=== PATIENT | female | born 1940 | race Caucasian/White ===

== ENCOUNTER 2019-12-26 15:35 | Outpatient (REF) | payer MEDICARE, SELFPAY ==
--- NOTE | 2019-12-26 15:43 | XR_ITS ---
EXAMINATION: XR KNEE, LEFT CLINICAL INFORMATION: Right knee pain (sic) COMPARISON: 12/25/2014 TECHNIQUE: Four views of the left knee. FINDINGS: No fracture, dislocation, or joint effusion. There are multiple well-corticated ossific structures in the right anterior soft tissues of the level of the proximal tibia. There is medial prepatellar soft tissue swelling. XR/XR knee LT 4V IMPRESSION: No acute osseous abnormality. Soft tissue swelling medially and anteriorly with dystrophic calcifications.
--- NOTE | 2019-12-26 15:43 | XR_ITS ---
EXAMINATION: XR CERVICAL SPINE CLINICAL INFORMATION: Neck pain COMPARISON: Report from CT cervical spine 09/24/2011, images not available for direct comparison at the time of interpretation TECHNIQUE: AP, lateral, odontoid, and bilateral oblique views. FINDINGS: The dens is intact. The lateral masses are normally aligned. There is normal prevertebral soft tissues. Normal sagittal alignment of the cervical spine. Osteopenia. Vertebral body heights are maintained. Mild multilevel degenerative disc disease with endplate sclerosis and osteophytosis. No fracture seen. There is multilevel facet arthropathy but no definite osseous neuroforaminal narrowing on oblique views. XR/XR cervical spine 5V IMPRESSION: No acute osseous abnormality. There is multilevel facet arthropathy but no definite osseous neuroforaminal narrowing on oblique views.
== END 2019-12-26 15:36 | disposition home or self-care (01) ==
LOC: HO.XRAY 15:35
DX: M54.2 Cervicalgia (principal); M25.562 Pain in left knee
CPT/HCPCS: 72050; 73564

== ENCOUNTER 2020-07-13 07:57 | Outpatient (REF) | payer MEDICARE, SELFPAY ==
[2020-07-13 12:23] LABS: Anion Gap 14 (12-20); Blood Urea Nitrogen 43 mg/dL (9-16); Calcium 9.4 mg/dL (8.4-10.2); Carbon Dioxide 26 mmol/L (22-29); Chloride 108 mmol/L (96-108); Estimated Glomerular Filt Rate 37; Glucose Fasting 68 mg/dL (60-99); Potassium 4.6 mmol/L (3.3-5.1); Sodium 143 mmol/L (135-145)
[2020-07-13 13:15] LABS: Erythrocyte Sedimentation Rate 18 MM/HR (0-20)
[2020-07-14 09:01] LABS: Lyme Abs Screen <0.90 index
[2020-07-15 15:27] LABS: Anti Nuclear Antibody Screen NEGATIVE (NEGATIVE)
[2020-07-17 11:56] LABS: IgA 78 mg/dL (70-320); IgG 1218 mg/dL (600-1540); IgM 31 mg/dL (50-300)
== END 2020-07-13 07:58 | disposition home or self-care (01) ==
LOC: HO.HMGCLDS 07:57
PROVIDERS: Visit Provider Psychiatry & Neurology Neurology
DX: G62.9 Polyneuropathy, unspecified (principal)
CPT/HCPCS: 36415; 80048; 82550; 82784; 85652; 86038; 86039; 86334; 86617; 86618

== ENCOUNTER → 2020-08-21 14:18 | Outpatient (BNVA) | payer MEDICARE, SELFPAY | PROVIDERS: PCP Nurse Practitioner Family; Visit Provider Internal Medicine Pulmonary Disease | DX: J44.9 Chronic obstructive pulmonary disease, unspecified (principal); R06.00 Dyspnea, unspecified; R06.09 Other forms of dyspnea; B94.8 Sequelae of other specified infectious and parasitic diseases | CPT/HCPCS: 99212 ==

== ENCOUNTER 2020-10-17 13:07 | Outpatient (REF) | payer MEDICARE, SELFPAY ==
--- NOTE | ~2020-10-17 | CT_ITS ---
EXAMINATION: CT CHEST WITHOUT CONTRAST CLINICAL INFORMATION: Dyspnea. COMPARISON: Previous chest x-rays, most recent April 2018 and abdominal and pelvic CT May 2017. TECHNIQUE: Multidetector volumetric CT imaging of the chest was done. Axial MIP volume rendering provided. Sagittal and coronal reformatted images were obtained. This CT examination was performed using dose optimization techniques as appropriate, variously including the following: *Automated exposure control *Adjustment of mA and/or kV according to patient size (this includes techniques or standardized protocols for targeted exams where dose is matched to indication/reason for exam; i.e. extremities or head) *Use of iterative reconstruction technique DLP: 150 mGy-cm. FINDINGS: MANAGER TRADE: LUNGS: There are increased reticular markings seen in the upper lungs, questionable for mild interstitial disease versus post infectious or inflammatory scarring. There is volume loss to the right lower lobe and thick band-like scarring or atelectasis in the right lower lobe. There is a 3 mm left lower lobe nodule, axial image 312 series 4. This is unchanged from lung windows from abdominal and pelvic CT scan May 2017. No endobronchial or tracheal lesion is seen. MEDIASTINUM: There is a 1.5 x 2.3 cm right thyroid nodule. There is a 1 cm nodule in the isthmus. The heart is slightly enlarged. There is coronary artery calcification. There is no pericardial effusion. There are no enlarged hilar or mediastinal lymph nodes. There may be a small esophageal hernia. PLEURA: There is a trace right pleural effusion or pleural thickening. There is no left pleural effusion. AXILLA: No lymphadenopathy. UPPER ABDOMEN: There is a 1 x 1.6 cm low-attenuation right adrenal lesion probably representing a lipid-rich adenoma. There is a 2 cm low-attenuation lesion high in the dome of the liver. These findings are unchanged from abdominal pelvic CT scan May 2015. OSSEOUS STRUCTURES: There are degenerative changes of the spine. There is a Schmorl's node superior endplate of the T10 vertebral body. CT/CT chest wo con IMPRESSION: Volume loss to the right lower lobe with thick band-like scarring or atelectasis. Increased reticular markings in the upper lungs questionable for mild interstitial disease versus post infectious or inflammatory scarring. Tiny right pleural effusion. Thyroid nodules, largest measuring 1 x 2 cm. Follow-up thyroid ultrasound recommended. Enlarged heart, coronary artery calcification.
== END 2020-10-17 13:08 | disposition home or self-care (01) ==
LOC: HO.CT 13:07
PROVIDERS: PCP Nurse Practitioner Family; Visit Provider Internal Medicine Pulmonary Disease
DX: R06.09 Other forms of dyspnea (principal); B94.8 Sequelae of other specified infectious and parasitic diseases
CPT/HCPCS: 71250

== ENCOUNTER 2020-10-31 13:48 | Outpatient (REF) | payer MEDICARE, SELFPAY ==
--- NOTE | 2020-10-31 15:01 | PFT_ITS ---
FLOWS: FEV1 72% of predicted at 1.11 L. FVC 73% of predicted at 1.54 L. FEV1 to FVC ratio of 0.72. No bronchodilator response except in small to medium airways. LUNG VOLUMES: Total lung capacity 83% of predicted at 3.73 L. Residual volume 101% of predicted at 2.23 L. Slow vital capacity 66% of predicted at 1.19 L. Expiratory reserve volume 20% of predicted at 0.08 L. Diffusion capacity is mildly decreased, diffusion capacity adjust to normal after adjustment for alveolar ventilation. In comparison to pulmonary function test in August 2018, FEV1 and FVC have been without significant changes; total lung capacity has decreased by 0.89 L; residual volume has decreased by 0.69 L; slow vital capacity has decreased by 0.28 L; expiratory reserve volume has decreased by 0.22 L; diffusion capacity has decreased by 5.33 mL/minute per mmHg. IMPRESSION: Moderate obstructive reversible ventilatory defect with no bronchodilator response except in small to medium airways. Decreased expiratory reserve volume suggests extrathoracic restriction likely secondary to abdominal obesity. Los Carnes MD AP/MODL / [phone]
== END 2020-10-31 13:49 | disposition home or self-care (01) ==
LOC: HO.RESP 13:48
PROVIDERS: PCP Nurse Practitioner Family; Visit Provider Internal Medicine Pulmonary Disease
DX: R06.09 Other forms of dyspnea (principal); B94.8 Sequelae of other specified infectious and parasitic diseases; R91.8 Other nonspecific abnormal finding of lung field; E04.2 Nontoxic multinodular goiter; R16.0 Hepatomegaly, not elsewhere classified; E27.8 Other specified disorders of adrenal gland; E55.9 Vitamin D deficiency, unspecified
CPT/HCPCS: 94060; 94727; 94729; 99202

== ENCOUNTER 2020-11-03 07:20 | Outpatient (REF) | payer MEDICARE, SELFPAY ==
[2020-11-03 08:42] LABS: Free T4 (Free Thyroxine) 0.83 ng/dL (0.71-1.85); Thyroid Stimulating Hormone 2.87 uIU/mL (0.32-4.0); Vitamin D 25-OH Total 25.2 ng/mL (>30)
[2020-11-03 10:04] LABS: Anion Gap 12 (12-20); Blood Urea Nitrogen 23 mg/dL (9-16); Calcium 9.2 mg/dL (8.4-10.2); Carbon Dioxide 26 mmol/L (22-29); Chloride 108 mmol/L (96-108); Estimated Glomerular Filt Rate 42; Glucose Random 75 mg/dL (60-115); Potassium 4.3 mmol/L (3.3-5.1); Sodium 142 mmol/L (135-145)
[2020-11-05 18:37] LABS: DHEA Sulfate 59 mcg/dL (7-177)
[2020-11-06 00:11] LABS: Adrenocorticotropic Hormone 11 pg/mL (6-50)
[2020-11-08 06:11] LABS: Metanephrine, Free 40 pg/mL (<=57); Normetanephrines, Free 72 pg/mL (<=148); Total Metanephrine, Free 112 pg/mL (<=205)
[2020-11-09 13:51] LABS: Renin 0.75 ng/mL/h (0.25-5.82)
[2020-11-12 21:38] LABS: Catecholamine Frac, Total 511 pg/mL
== END 2020-11-03 07:21 | disposition home or self-care (01) ==
LOC: HO.LAB 07:20
PROVIDERS: PCP Nurse Practitioner Family; Visit Provider Internal Medicine
DX: E04.2 Nontoxic multinodular goiter (principal); E27.8 Other specified disorders of adrenal gland; E55.9 Vitamin D deficiency, unspecified
CPT/HCPCS: 36415; 80048; 82024; 82088; 82306; 82384; 82533; 82627; 83835; 84244; 84439; 84443

== ENCOUNTER 2020-11-07 11:30 | Outpatient (REF) | payer MEDICARE, SELFPAY ==
[2020-11-07 11:40] LABS: Total Volume 24 Hour Urine 1100 mL
[2020-11-07 12:26] LABS: Creatinine, 24Hr Urine 0.6 G/Day (1.0-2.0); Creatinine, mg/dL 57.72
[2020-11-13 16:27] LABS: Cortisol Free, 24 Hr Urine 6.6 mcg/24 h (4.0-50.0); Creatinine, 24 Hr Urine 0.66 g/24 h (0.50-2.15); Total Volume, 24 Hr Urine 1100 mL
[2020-11-14 06:16] LABS: CATF, 24 Ur Volume 1100 mL; CATF-24Ur Creatinine 0.65 g/24 h (0.50-2.15); Catecholamines,Tot. (E+NE) 24U 18 mcg/24 h (26-121); Dopamine, 24 Ur 97 mcg/24 h (52-480); Norepinephrine, 24 Ur 18 mcg/24 h (15-100)
[2020-11-21 11:53] LABS: Metanephrine, Free 24U 31 mcg/24 h (90-315); Normetanephrine, Free 24U 160 mcg/24 h (122-676); Total Metanephrine, Free 24U 191 mcg/24 h (224-832); Total Volume 24U 1100 mL
== END 2020-11-07 11:31 | disposition home or self-care (01) ==
LOC: HO.LNP 11:30
PROVIDERS: Visit Provider Internal Medicine
DX: E27.8 Other specified disorders of adrenal gland (principal)
CPT/HCPCS: 82384; 82530; 82570; 83835

== ENCOUNTER 2020-11-21 10:11 | Outpatient (REF) | payer MEDICARE, SELFPAY ==
--- NOTE | ~2020-11-21 | US_ITS ---
EXAMINATION: US THYROID CLINICAL INFORMATION: Nontoxic multinodular goiter. COMPARISON: None TECHNIQUE: Linear transducer grayscale and color Doppler examination with attention to the region of the thyroid. FINDINGS: SIZE: Measurements of the thyroid lobes and nodules are given in sagittal, anteroposterior and transverse dimensions respectively. Right Thyroid Lobe: 4.4 x 1.7 x 2.4 cm, volume 9.4 mL. Parenchyma: The gland echotexture is heterogeneous. Thyroid vascularity is increased. Left Thyroid Lobe: 3.7 x 1.3 x 1.1 cm, volume 2.8 mL. Parenchyma: The gland echotexture is heterogeneous. Thyroid vascularity is increased. Isthmus: 0.9 cm in maximum AP dimension. Estimated total number of nodules greater than or equal to 1 cm: 6 to 10. Estimate Clerk nodules are described as follows: 1. Location: Isthmus. Size: 1.0 x 0.8 x 1.0 cm, volume 0.41 mL. Nodule characteristics: Composition: Solid (2). Echogenicity: Isoechoic (1). Shape: Not taller than wide (0). Margins: Echogenic Foci: None (0). ACR TI-RADS total points: 3 ACR TI-RADS category: 3 2. Location: Inferior isthmus. Size: 1.1 x 1.0 x 1.2 cm, volume 0.69 mL. Nodule characteristics: Composition: Solid (2). Echogenicity: Hypoechoic (2). Shape: Not taller than wide (0). Margins: Ill-defined (0). Echogenic Foci: None (0). ACR TI-RADS total points: 4 ACR TI-RADS category: 4 3. Location: Right superior. Size: 1.0 x 0.7 x 1.1 cm, volume 0.41 mL. Nodule characteristics: Composition: Solid (2). Echogenicity: Cannot be determined (1). Shape: Not taller than wide (0). Margins: Ill-defined (0). Echogenic Foci: Macrocalcifications (1). ACR TI-RADS total points: 4 ACR TI-RADS category: 4 4. Location: Right mid. Size: 2.3 x 1.7 x 2.2 cm, volume 4.46 mL. Nodule characteristics: Composition: Solid/almost completely solid (2). Echogenicity: Hypoechoic (2). Shape: Not taller than wide (0). Margins: Lobulated (2). Echogenic Foci: None (0). ACR TI-RADS total points: 6 ACR TI-RADS category: 4 5. Location: Left inferior. Size: 1.0 x 0.8 x 1.2 cm, volume 1.18 mL. Nodule characteristics: Composition: Solid (2). Echogenicity: Hypoechoic (2). Shape: Not taller than wide (0). Margins: Ill-defined (0). Echogenic Foci: None (0). ACR TI-RADS total points: 4 ACR TI-RADS category: 4 NODES: No lymphadenopathy is seen in the tissue surrounding the thyroid gland. US/US thyroid IMPRESSION: 1. Multiple thyroid nodules are seen, as above. The 2.3 cm in maximal diameter mid right thyroid lobe nodule meets ACR biopsy criteria and is amenable to ultrasound-guided biopsy, if clinically indicated and not already performed. 2. There is heterogeneous thyroid echotexture and increased vascularity, which can be associated with thyroiditis. ACR TI-RADS RECOMMENDATION REFERENCE: Ultrasound-guided fine-needle aspiration, followup ultrasound, no further follow up. * TR1 (0 point) and TR 2 (2 points): No FNA or follow up * TR3 (3 points): FNA if more than or equal to 2.5 cm in maximum dimension, followup ultrasound in 1, 3 and 5 years if 1.5 to 2.4 cm in maximum dimension. * TR4 (4-6 points): FNA if more than or equal to 1.5 cm in maximum dimension, followup ultrasound in 1, 2, 3 and 5 years if 1 to 1.4 cm in maximum dimension. * TR5 (more than or equal to 7 points): FNA if more than or equal to 1 cm in maximum dimension, followup ultrasound every year for 5 years if 0.5 to 0.9 cm in maximum dimension. * TR3, TR4 or TR5 nodules that are below the size threshold for follow up receive no follow up.
== END 2020-11-21 10:12 | disposition home or self-care (01) ==
LOC: HO.HMGCX 10:11
PROVIDERS: PCP Nurse Practitioner Family; Visit Provider Internal Medicine
DX: J44.9 Chronic obstructive pulmonary disease, unspecified (principal); R91.1 Solitary pulmonary nodule; E04.2 Nontoxic multinodular goiter
CPT/HCPCS: 76536; 99212

== ENCOUNTER 2020-12-03 08:38 | Outpatient (REF) | payer MEDICARE, SELFPAY ==
--- NOTE | ~2020-12-03 | CT_ITS ---
EXAMINATION: CT ABDOMEN WITHOUT AND WITH CONTRAST CLINICAL INFORMATION: 80-year-old female with adrenal abnormality. COMPARISON: Abdomen CT from 05/29/2017. Chest CT from 10/17/2020. TECHNIQUE: Multidetector CT imaging examination of the abdomen was performed focused on the adrenal glands. Initially, noncontrast images were acquired. Then, postcontrast imaging was performed in 2 phases according to adrenal protocol after intravenous administration of 85 mL Omnipaque 350. This CT examination was performed using dose optimization techniques as appropriate, variously including the following: *Automated exposure control *Adjustment of mA and/or kV according to patient size (this includes techniques or standardized protocols for targeted exams where dose is matched to indication/reason for exam; i.e. extremities or head) *Use of iterative reconstruction technique DLP: 944 mGy-cm FINDINGS: LUNG BASES: Subsegmental atelectasis in the right lower lobe. No basilar consolidation. A trace right pleural effusion is present. LIVER: Liver has normal size and contour. A 2 x 2.4 cm hypodense subcapsular focus of hepatic segment 8 is stable compared to 05/29/2017. It has a density of approximately 30 HU on noncontrast images. It does not significantly change in its attenuation on postcontrast images. This likely represents a hypoenhancing hemangioma rather than a slightly hyperdense liver cyst. No suspicious liver lesions. GALLBLADDER AND BILIARY TREE: Gallbladder is without radiopaque stones, wall thickening or pericholecystic fluid. No bile duct dilatation. PANCREAS: Mild atrophy and partial fatty replacement of the pancreas. No pancreatic mass or ductal dilatation. SPLEEN: Normal. ADRENAL GLANDS: 1.2 x 1.7 cm smoothly marginated, noncalcified nodule of the right adrenal gland has attenuation of approximately 6 HU on the noncontrast images. The nodule is unchanged in size compared to 05/29/2017, and the low-attenuation is consistent with lipid rich adenoma. The lesion measures 65 HU on the 1 minute postcontrast images and 19 HU on the delayed postcontrast images. The absolute percentage washout of the adrenal lesion is 78%. The left adrenal gland is normal. KIDNEYS: No acute abnormalities in either kidney. No nephrolithiasis or hydronephrosis. No solid renal mass. There is mild atrophy of the left kidney. There are a few small simple cysts of the left kidney. Renal imaging follow-up is not recommended for simple cysts. The visualized proximal ureters are normal. BOWEL AND PERITONEUM: No dilated loops of bowel. No evidence of inflammatory change or obstruction along the visualized gastrointestinal tract. There are diverticula of the colon without diverticulitis. There appears to be a very small sliding-type hiatal hernia of the stomach. ABDOMINAL WALL: Unremarkable. VASCULATURE: Atherosclerotic calcification of the abdominal aorta without aneurysm. The calcified atherosclerotic plaque appears to cause severe stenosis at the origin of the left renal artery. Inferior vena cava and renal veins are normal. LYMPH NODES: No pathologic sized lymph nodes. SKELETAL: Multilevel discovertebral degenerative change and chondrocalcinosis of the visualized spine. Schmorl's node of superior endplate of the T10 vertebral body. 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 * The stable hypodense subcapsular focus of hepatic segment 8 is likely a hemangioma. No new liver lesion. * Colonic diverticulosis without diverticulitis.
[2020-12-03] MEDS: iohexoL 350 MG/ML 100 ML INFUS..BTL 85 ML IV (10:32)
== END 2020-12-03 08:39 | disposition home or self-care (01) ==
LOC: HO.CT 08:38
PROVIDERS: PCP Nurse Practitioner Family; Visit Provider Internal Medicine
DX: E27.8 Other specified disorders of adrenal gland (principal)
CPT/HCPCS: 74170; Q9967

== ENCOUNTER → 2021-02-18 12:56 | Outpatient (BNVA) | payer MEDICARE, SELFPAY | PROVIDERS: PCP Nurse Practitioner Family; Visit Provider Internal Medicine Gastroenterology | DX: R16.0 Hepatomegaly, not elsewhere classified (principal) | CPT/HCPCS: Q3014 ==

== ENCOUNTER 2021-03-29 10:39 | Outpatient (REF) | payer MEDICARE, SELFPAY ==
[2021-03-29 14:32] LABS: Alanine Aminotransferase 16 U/L (0-31); Alkaline Phosphatase 92 U/L (39-117); Anion Gap 12 (12-20); Aspartate Amino Transferase 17 U/L (5-31); Bilirubin Total 0.5 mg/dL (0.0-1.0); Blood Urea Nitrogen 25 mg/dL (9-16); Calcium 10.1 mg/dL (8.4-10.2); Carbon Dioxide 31 mmol/L (22-29); Chloride 103 mmol/L (96-108); Estimated Glomerular Filt Rate 36; Glucose Random 84 mg/dL (60-115); Potassium 4.4 mmol/L (3.3-5.1); Sodium 142 mmol/L (135-145); Total Protein 6.5 g/dL (6.5-8.0)
== END 2021-03-29 10:40 | disposition home or self-care (01) ==
LOC: HO.HMGCLDS 10:39
PROVIDERS: Visit Provider Internal Medicine Gastroenterology
DX: K75.81 Nonalcoholic steatohepatitis (NASH) (principal)
CPT/HCPCS: 36415; 80053

== ENCOUNTER 2021-04-03 09:37 | Outpatient (REF) | payer MEDICARE, SELFPAY ==
--- NOTE | ~2021-04-03 | CT_ITS ---
EXAMINATION: CT ABDOMEN WITHOUT AND WITH CONTRAST CLINICAL INFORMATION: Hepatomegaly. COMPARISON: None TECHNIQUE: Contiguous axial thin section helical images of the abdomen were performed before and after the administration of oral contrast and 85 mL of Omnipaque 350 intravenous contrast. The data set was reformatted in the coronal and sagittal planes and reviewed on an independent workstation. This CT examination was performed using dose optimization techniques as appropriate, variously including the following: *Automated exposure control *Adjustment of mA and/or kV according to patient size (this includes techniques or standardized protocols for targeted exams where dose is matched to indication/reason for exam; i.e. extremities or head) *Use of iterative reconstruction technique DLP: 965 mGy-cm FINDINGS: LUNG BASES: Mild atelectatic changes seen right lung base. Heart size is normal. LIVER, GALLBLADDER, AND BILIARY TREE: There is a 1.1 x 2.3 cm triangular hypodensity right hepatic lobe segment 6 adjacent to the right hemidiaphragm on axial image 9/3. No additional lesions seen. The rest of the liver is homogeneous in density, normal size and contour. No intrahepatic ductal dilatation seen. The gallbladder is unremarkable. PANCREAS: The pancreas is homogeneous in density and appears unremarkable. SPLEEN: The spleen is homogeneous in density and appears unremarkable. ADRENAL GLANDS AND KIDNEYS: There is a right adrenal nodule with heterogeneous attenuation measuring 1.2 x 1.6 cm and 44 Hounsfield units. The left adrenal gland is unremarkable. BOWEL LOOPS: There is scattered stool, diverticula and gas in colon without distention. The small bowel loops are normal caliber. Appendix is not visualized. The stomach is nondistended. LYMPH NODES: Normal. VASCULAR: Unremarkable. BONES: There is vacuum disc phenomena and disc degeneration at L3-L4 and L4-L5 disc level. No aggressive lytic or sclerotic process seen. CT/CT abdomen wo/w con IMPRESSION: 1. Hypodense triangular-shaped lesion right hepatic lobe lesion adjacent to the diaphragm. The differential diagnosis to consider focal fatty infiltration, hemangioma or adenoma. 2. Heterogeneous enhancing lesion right adrenal gland. Recommend adrenal protocol for further evaluation. 3. Scattered colonic diverticulosis without diverticulitis. Fleischner guidelines were followed.
[2021-04-03] MEDS: iohexoL 350 MG/ML 100 ML INFUS..BTL IV (11:05)
== END 2021-04-03 09:38 | disposition home or self-care (01) ==
LOC: HO.CT 09:37
PROVIDERS: PCP Nurse Practitioner Family; Visit Provider Internal Medicine Gastroenterology
DX: R16.0 Hepatomegaly, not elsewhere classified (principal)
CPT/HCPCS: 74170; Q9967

== ENCOUNTER 2021-04-18 08:42 | Outpatient (REF) | payer MEDICARE, SELFPAY ==
--- NOTE | 2021-04-18 09:57 | PM.OP ---
Brief Operative Note Date of Service: 04/18/21 Pre-op diagnosis: Multinodular Thyroid Procedure: This is doctor Harper Saul. This is an ultrasound-guided fine-needle aspiration report. Date of Examination: 04/18/2021 Indication: Multinodular Thyroid Porcedure: Procedure was explained to the patient. Alternatives, the risk and benefits were discussed. Written consent was obtained. A time-out was also obtained. After sterile preparation, fine-needle aspiration of a left lower pole 1.3 cm thyroid nodule was performed using direct ultrasound guidance to confirm accurate needle placement. Two aspirations were made using 27 gauge needles. Samples were submitted for cytology. 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 Our attention was then turned to the isthmus. Fine-needle aspiration of an isthmus 1.1 cm thyroid nodule was performed using direct ultrasound guidance to confirm accurate needle placement. Three aspirations were made using 27 gauge needles. Samples were submitted for cytology. 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 Our attention was then turned to the left right lobe. Fine-needle aspiration of a right mid pole 1.9 cm thyroid nodule was performed using direct ultrasound guidance to confirm accurate needle placement. Four aspirations were made using 27 gauge needles. Samples were submitted for cytology. 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 The patient tolerated the procedure well. Aftercare instructions were provided. Of note, the measured nodules during today's exam did not completely correlate with what was measured on her official radiology read US. During today's exam she was noted to only have 1 nodule within the isthmus, 1 nodule within the R lobe, and 1 nodule within the left lobe. All 3 of these nodules were biopsied today. Impression: Uncomplicated fine needle aspiration biopsy of a left lower pole 1.3 cm thyroid nodule, an isthmus 1.1 cm thyroid nodule and a right mid pole 1.9 cm thyroid nodule under ultrasound guidance. Surgeon: Harper Saul, DO Was an Catechist used for this Procedure?: No Estimated blood loss (mL): 0
[2021-04-18] MEDS: Lidocaine HCl 1 % MPF 5 ML VIAL SUBCUT (10:35)
== END 2021-04-18 08:43 | disposition home or self-care (01) ==
LOC: HO.US 08:42
PROVIDERS: PCP Nurse Practitioner Family; Visit Provider Internal Medicine
DX: E04.2 Nontoxic multinodular goiter (principal)
CPT/HCPCS: 10005; 10006; 88172; 88173

== ENCOUNTER → 2021-04-29 08:18 | Outpatient (BNVA) | payer MEDICARE, SELFPAY | PROVIDERS: PCP Nurse Practitioner Family; Visit Provider Internal Medicine Gastroenterology | DX: Z13.89 Encounter for screening for other disorder (principal) | CPT/HCPCS: Q3014 ==

== ENCOUNTER → 2021-05-02 10:32 | Outpatient (BNVA) | payer MEDICARE, SELFPAY | PROVIDERS: PCP Nurse Practitioner Family; Visit Provider Internal Medicine | DX: E04.2 Nontoxic multinodular goiter (principal); E27.8 Other specified disorders of adrenal gland; E55.9 Vitamin D deficiency, unspecified; R16.0 Hepatomegaly, not elsewhere classified | CPT/HCPCS: Q3014 ==

== ENCOUNTER → 2021-06-12 09:46 | Outpatient (BNVA) | payer MEDICARE, SELFPAY | PROVIDERS: PCP Nurse Practitioner Family; Visit Provider Internal Medicine Pulmonary Disease | DX: Z13.89 Encounter for screening for other disorder (principal) | CPT/HCPCS: 99212 ==

== ENCOUNTER 2021-10-30 12:37 | Outpatient (REF) | payer MEDICARE, SELFPAY ==
--- NOTE | ~2021-10-30 | CT_ITS ---
EXAMINATION: CT CHEST WITHOUT CONTRAST CLINICAL INFORMATION: Solitary pulmonary nodule. COMPARISON: CT chest 10/17/2020. TECHNIQUE: Multidetector volumetric CT imaging of the chest was done. Axial MIP volume rendering provided. Sagittal and coronal reformatted images were obtained. This CT examination was performed using dose optimization techniques as appropriate, variously including the following: *Automated exposure control *Adjustment of mA and/or kV according to patient size (this includes techniques or standardized protocols for targeted exams where dose is matched to indication/reason for exam; i.e. extremities or head) *Use of iterative reconstruction technique DLP: 151 mGy-cm FINDINGS: CLOCK AND WATCH HANDS DIPPER: Unremarkable plug sorter exam. LUNGS: There are subpleural prominent reticular markings in both upper lobes slightly greater than the right than left similar to previous study. Minimal ground-glass attenuation is seen in both upper lobes all suggestive of low-grade inflammatory process. The lungs are hyperinflated. Patchy opacity seen in right lower lobe with loss of right lung volume likely chronic atelectasis or scarring. There is a 2 mm nodule left lower lobe axial image 250/5, stable. There are sub-millimeter small nodules seen as well in the left lower lobe which are also stable. No new nodules or mass seen. MEDIASTINUM: The right thyroid lobe is enlarged compared to left side with probable small nodule not clearly visualized at this time.. The central trachea and the bronchi are widely patent. Heart size and the great vessels are normal caliber. Mild coronary artery calcifications are present. There is no pericardial effusion. There is probable small hiatal hernia. CORONARY ARTERY CALCIFICATION: Moderate coronary artery calcification is present. PLEURA: There is no pleural effusion. No pleural mass or thickening. AXILLA: No lymphadenopathy. UPPER ABDOMEN: Visualized liver, spleen and pancreas unremarkable. There is right adrenal 1.5 cm hypodense nodule measuring 4 Hounsfield units likely adenoma. OSSEOUS STRUCTURES: There is exaggerated thoracic kyphosis with mild ventral spondylosis mid dorsal spine. No lytic or sclerotic process seen. CT/CT chest wo IV con IMPRESSION: Hyperinflated lungs with mild volume loss right lung from chronic atelectasis or scarring in the right lower lobe. Small pulmonary nodules are stable. No change in coronary and mitral valve calcifications. Probable small hiatal hernia. Fleischner guidelines were followed.
== END 2021-10-30 12:38 | disposition home or self-care (01) ==
LOC: HO.CT 12:37
PROVIDERS: PCP Nurse Practitioner Family; Visit Provider Internal Medicine Pulmonary Disease
DX: R91.1 Solitary pulmonary nodule (principal)
CPT/HCPCS: 71250

== ENCOUNTER 2021-11-01 07:16 | Outpatient (REF) | payer MEDICARE, SELFPAY ==
[2021-11-01 08:44] LABS: Cortisol Random 1.5 ug/dL
[2021-11-01 08:46] LABS: Vitamin D 25-OH Total 34.9 ng/mL (>30)
[2021-11-04 21:57] LABS: Adrenocorticotropic Hormone <5 pg/mL (6-50)
[2021-11-06 15:10] LABS: Dexamethasone 184 ng/dL
== END 2021-11-01 07:17 | disposition home or self-care (01) ==
LOC: HO.LAB 07:16
PROVIDERS: PCP Nurse Practitioner Family; Visit Provider Internal Medicine
DX: J44.9 Chronic obstructive pulmonary disease, unspecified (principal); R06.00 Dyspnea, unspecified; R91.1 Solitary pulmonary nodule; E55.9 Vitamin D deficiency, unspecified; E27.8 Other specified disorders of adrenal gland
CPT/HCPCS: 36415; 80299; 82024; 82306; 82533; 99212

== ENCOUNTER → 2021-11-04 10:49 | Outpatient (BNVA) | payer MEDICARE, SELFPAY | PROVIDERS: PCP Nurse Practitioner Family; Visit Provider Internal Medicine | DX: E04.2 Nontoxic multinodular goiter (principal); R16.0 Hepatomegaly, not elsewhere classified; E27.8 Other specified disorders of adrenal gland | CPT/HCPCS: Q3014 ==

== ENCOUNTER 2021-11-05 07:15 | Outpatient (REF) | payer MEDICARE, SELFPAY ==
[2021-11-05 08:05] LABS: Anion Gap 15 (12-20); Blood Urea Nitrogen 32 mg/dL (9-16); Calcium 9.5 mg/dL (8.4-10.2); Carbon Dioxide 28 mmol/L (22-29); Chloride 103 mmol/L (96-108); Estimated Glomerular Filt Rate 38; Glucose Random 78 mg/dL (60-115); Sodium 142 mmol/L (135-145)
[2021-11-05 08:27] LABS: Free T4 (Free Thyroxine) 0.88 ng/dL (0.71-1.85); Thyroid Stimulating Hormone 1.58 uIU/mL (0.32-4.0)
[2021-11-05 09:24] LABS: Cortisol Random 10.6 ug/dL
[2021-11-06 13:56] LABS: Adrenocorticotropic Hormone 17 pg/mL (6-50)
[2021-11-06 22:57] LABS: DHEA Sulfate 62 mcg/dL (4-157)
[2021-11-09 11:36] LABS: Renin 2.55 ng/mL/h (0.25-5.82)
[2021-11-09 12:06] LABS: Metanephrine, Free <25 pg/mL (<=57); Normetanephrines, Free 81 pg/mL (<=148); Total Metanephrine, Free 81 pg/mL (<=205)
[2021-11-10 21:31] LABS: Catecholamine Frac, Total 409 pg/mL
== END 2021-11-05 07:16 | disposition home or self-care (01) ==
LOC: HO.LAB 07:15
PROVIDERS: PCP Nurse Practitioner Family; Visit Provider Internal Medicine
DX: E27.8 Other specified disorders of adrenal gland (principal); E04.1 Nontoxic single thyroid nodule; E04.2 Nontoxic multinodular goiter
CPT/HCPCS: 36415; 80048; 82024; 82088; 82384; 82533; 82627; 83835; 84244; 84439; 84443

== ENCOUNTER 2021-11-07 08:42 | Outpatient (REF) | payer MEDICARE, SELFPAY ==
[2021-11-07 15:30] LABS: Creatinine, 24Hr Urine 0.8 G/Day (1.0-2.0); Total Volume 24 Hour Urine 700 mL
[2021-11-13 09:07] LABS: CATF, 24 Ur Volume 700 mL; Catecholamines,Tot. (E+NE) 24U 14 mcg/24 h (26-121); Dopamine, 24 Ur 84 mcg/24 h (52-480); Norepinephrine, 24 Ur 14 mcg/24 h (15-100)
[2021-11-13 21:27] LABS: Metanephrine, Free 24U 37 mcg/24 h (90-315); Normetanephrine, Free 24U 232 mcg/24 h (122-676); Total Metanephrine, Free 24U 269 mcg/24 h (224-832); Total Volume 24U 700 mL
[2021-11-14 09:16] LABS: Cortisol Free, 24 Hr Urine 9.1 mcg/24 h (4.0-50.0); Creatinine, 24 Hr Urine 0.78 g/24 h (0.50-2.15); Total Volume, 24 Hr Urine 700 mL
== END 2021-11-07 08:43 | disposition home or self-care (01) ==
LOC: HO.HMGCLDS 08:42
PROVIDERS: PCP Nurse Practitioner Family; Visit Provider Internal Medicine
DX: E27.8 Other specified disorders of adrenal gland (principal)
CPT/HCPCS: 36415; 82384; 82530; 82570; 83835

== ENCOUNTER 2022-02-25 09:12 | Outpatient (REF) | payer MEDICARE, SELFPAY ==
--- NOTE | ~2022-02-25 | CT_ITS ---
EXAMINATION: CT ABDOMEN WITHOUT CONTRAST CLINICAL INFORMATION: Adrenal gland disorder. COMPARISON: CT chest 10/30/2021. CT abdomen 04/03/2021. TECHNIQUE: Contiguous axial thin section helical images of the abdomen were performed without contrast. The data set was reformatted in the coronal and sagittal planes and reviewed on an independent workstation. This CT examination was performed using dose optimization techniques as appropriate, variously including the following: *Automated exposure control *Adjustment of mA and/or kV according to patient size (this includes techniques or standardized protocols for targeted exams where dose is matched to indication/reason for exam; i.e. extremities or head) *Use of iterative reconstruction technique DLP: 117 mGy-cm. FINDINGS: LUNG BASES: Plate-like atelectatic changes are seen in the right lung base. There is a small hiatal hernia. LIVER, GALLBLADDER, BILIARY TREE: The liver is normal size, contour and density. PANCREAS: The pancreas is normal size and homogeneous in density without enlargement or lesion. SPLEEN: The spleen is unremarkable. ADRENAL GLANDS AND KIDNEYS: There is a 1.5 cm hypodense right adrenal lesion measuring -6 Hounsfield units suggestive of benign adenoma. No workup needed left adrenal gland is unremarkable. BOWEL LOOPS: Scattered stool and gas is seen throughout the colon without any significant distention. The small bowel loops are normal caliber. LYMPH NODES: No lymph nodes visualized on this limited CT. VASCULAR: Proximal abdominal aorta is normal caliber except for mild atherosclerosis. BONES: Unremarkable. CT/CT abdomen wo IV con IMPRESSION: 1. 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 No further workup needed. 2. Mild constipation. 3. Small hiatal hernia. Fleischner guidelines were followed.
[2022-02-25 11:40] LABS: Creatinine POC 0.8 mg/dL (0.5-1.4); GFR POC > 60
== END 2022-02-25 09:13 | disposition home or self-care (01) ==
LOC: HO.CT 09:12
PROVIDERS: PCP Nurse Practitioner Family; Visit Provider Internal Medicine
DX: E27.8 Other specified disorders of adrenal gland (principal)
CPT/HCPCS: 74150; 82565

== ENCOUNTER 2022-03-13 10:35 | Outpatient (REF) | payer MEDICARE, SELFPAY ==
--- NOTE | ~2022-03-13 | US_ITS ---
EXAMINATION: US THYROID CLINICAL INFORMATION: Nontoxic multinodular goiter. Granddaughter had thyroid cancer. COMPARISON: Ultrasound thyroid 11/21/2020. TECHNIQUE: Linear transducer grayscale and color Doppler examination with attention to the region of the thyroid. FINDINGS: SIZE: Measurements of the thyroid lobes and nodules are given in sagittal, anteroposterior and transverse dimensions respectively. Right Thyroid Lobe: 3.7 x 1.8 x 2.2 cm, volume 7.7 mL. Previously 4.4 x 1.7 x 2.4 cm, volume 9.4 mL. Parenchyma: The gland echotexture is heterogeneous. Thyroid vascularity is increased. Left Thyroid Lobe: 3.6 x 1.1 x 1.4 cm, volume 2.9 mL. Previously 3.7 x 1.3 x 1.1 cm, volume 2.8 mL. Parenchyma: The gland echotexture is heterogeneous. Thyroid vascularity is normal. Isthmus: 1.0 cm in maximum AP dimension. Previously 0.9 cm. Estimated total number of nodules greater than or equal to 1 cm: 3. [facility] nodules are described as follows: 1. Location: Isthmus. Size: 0.8 x 0.7 x 1.0 cm, volume 0.3 mL. Previously: 1.0 x 0.8 x 1.0 cm, volume 0.4 mL. Nodule characteristics: Composition: Solid (2). Echogenicity: Hyperechoic (1). Shape: Not taller than wide (0). Margins: Smooth (0). Echogenic Foci: None (0). ACR TI-RADS total points: 3 Previous: 3 ACR TI-RADS category: 3 Previous: 3 Significant change in size (>/= 20% in 2 dimensions and minimal increase of 2 mm or 50% or greater increase in volume): None Change in features: None Change in ACR TI-RADS risk category: No change 2. Location: Isthmus inferior. Size: 0.8 x 0.7 x 0.6 cm, volume 0.2 mL. Previously: 1.1 x 1.0 x 1.2 cm, volume 0.7 mL. Nodule characteristics: Composition: Solid (2). Echogenicity: Hypoechoic (2). Shape: Not taller than wide (0). Margins: Smooth (0). Echogenic Foci: None (0). ACR TI-RADS total points: 4 Previous: 4 ACR TI-RADS category: 4 Previous: 4 Significant change in size (>/= 20% in 2 dimensions and minimal increase of 2 mm or 50% or greater increase in volume): None Change in features: None Change in ACR TI-RADS risk category: No change 3. Location: Right superior. Size: 1.1 x 0.9 x 0.9 cm, volume 0.5 mL. Previously: 1.0 x 0.7 x 1.1 cm, volume 0.4 mL. Nodule characteristics: Composition: Solid (2). Echogenicity: Isoechoic (1). Shape: Not taller than wide (0). Margins: Smooth (0). Echogenic Foci: None (0). ACR TI-RADS total points: 3 Previous: 4 ACR TI-RADS category: 3 Previous: 4 Significant change in size (>/= 20% in 2 dimensions and minimal increase of 2 mm or 50% or greater increase in volume): None Change in features: None Change in ACR TI-RADS risk category: No change 4. Location: Right mid. Size: 2.0 x 2.0 x 1.6 cm, volume 3.4 mL. Previously: 2.3 x 1.7 x 2.2 cm, volume 4.5 mL. Nodule characteristics: Composition: Solid (2). Echogenicity: Cannot be determined (1). Shape: Taller than wide (3). Margins: Smooth (0). Echogenic Foci: None (0). ACR TI-RADS total points: 6 Previous: 6 ACR TI-RADS category: 4 Previous: 4 Significant change in size (>/= 20% in 2 dimensions and minimal increase of 2 mm or 50% or greater increase in volume): None Change in features: None Change in ACR TI-RADS risk category: No change 5. Location: Left inferior. Size: 0.6 x 0.6 x 0.6 cm, volume 0.1 mL. Previously: 1.0 x 0.8 x 1.2 cm, volume 0.5 mL. Nodule characteristics: Composition: Solid (2). Echogenicity: Isoechoic (1). Shape: Not taller than wide (0). Margins: Smooth (0). Echogenic Foci: None (0). ACR TI-RADS total points: 3 Previous: 4 ACR TI-RADS category: 3 Previous: 4 Significant change in size (>/= 20% in 2 dimensions and minimal increase of 2 mm or 50% or greater increase in volume): None Change in features: None Change in ACR TI-RADS risk category: No change NODES: No lymphadenopathy is seen in the tissue surrounding the thyroid gland. US/US thyroid IMPRESSION: 1. Heterogeneous thyroid gland with multiple thyroid nodules. There is increased vascularity in right lobe. 2. The largest nodule in the mid right lobe measures 2.0 cm. Minimal change in the size from the last exam 11/21/2020. It meets TI-RADS criteria for ultrasound-guided biopsy. 3. TR1 (0 point) and TR 2 (2 points): 4. TR4 (4-6 points): FNA if more than or equal to 1.5 cm in maximum dimension, followup ultrasound in 1, 2, 3 and 5 years if 1 to 1.4 cm in maximum dimension. 5. TR5 (more than or equal to 7 points): FNA if more than or equal to 1 cm in maximum dimension, followup ultrasound every year for 5 years if 0.5 to 0.9 cm in maximum dimension.
== END 2022-03-13 10:36 | disposition home or self-care (01) ==
LOC: HO.US 10:35
PROVIDERS: PCP Nurse Practitioner Family; Visit Provider Internal Medicine
DX: E04.2 Nontoxic multinodular goiter (principal)
CPT/HCPCS: 76536

== ENCOUNTER 2022-04-04 14:30 | Outpatient (REF) | payer MEDICARE, SELFPAY ==
[2022-04-04 15:59] LABS: Influenza A PCR NEGATIVE (Negative); Influenza B PCR NEGATIVE (Negative); Resp Syncy Virus RNA Qual PCR NEGATIVE (Negative); SARS COV2 PCR INHOUSE NEGATIVE (Negative)
== END 2022-04-04 14:31 | disposition home or self-care (01) ==
LOC: HO.LNP 14:30
PROVIDERS: Visit Provider Physician Assistant
DX: Z20.822 Contact with and (suspected) exposure to COVID-19 (principal); B34.9 Viral infection, unspecified
CPT/HCPCS: 0241U

== ENCOUNTER → 2022-05-12 13:10 | Outpatient (BNVA) | payer MEDICARE, SELFPAY | PROVIDERS: PCP Nurse Practitioner Family; Visit Provider Internal Medicine | DX: E04.2 Nontoxic multinodular goiter (principal); E27.8 Other specified disorders of adrenal gland | CPT/HCPCS: 99212 ==

== ENCOUNTER → 2022-05-16 09:12 | Outpatient (BNVA) | payer MEDICARE, SELFPAY | PROVIDERS: PCP Nurse Practitioner Family; Visit Provider Internal Medicine Pulmonary Disease | DX: J44.9 Chronic obstructive pulmonary disease, unspecified (principal); R06.00 Dyspnea, unspecified | CPT/HCPCS: 99212 ==

== ENCOUNTER 2022-11-20 09:18 | Outpatient (AMB) | payer MEDICARE, SELFPAY ==
[2022-11-20 09:19] VITALS: BP 138/77; PULSE 70; O2SAT 98; BMI 39.0
--- NOTE | 2022-11-20 09:19 | MHC.OFFVIS ---
Intake Vital Signs 11/20/22 09:19 Height 5 ft Weight 199 lb 8.293 oz BMI 39.0 BP 138/77 Blood Pressure Location Rt brachial Position Sitting Pulse 70 Pulse Source Doppler Pulse Oximetry (%) 98 Oxygen Delivery Method Room Air Intake Visit Reasons: copd Allergies baclofen Allergy (Severe, Verified 11/20/22 09:24) Vomiting azithromycin Adverse Reaction (Unknown, Verified 11/20/22 09:24) IRREGULAR HEART BEAT zpak Allergy (Unknown, Uncoded 05/12/22 13:20) Unknown HPI copd HPI Details 82-year-old lady, former 30 pack-year smoker, quit 1993 , followed for moderate COPD and dyspnea on exertion. ? She has been using Stiolto ( she does not tolerate powder inhalers) and Lasix 40 mg daily to control her dyspnea with good results. However, patient states that Stiolto is quite expensive. She denies his exacerbations. She does complain of unrestful sleep and daytime somnolence. [facility] Medical History Adrenal mass, right Liver mass Multinodular thyroid Vitamin D deficiency Surgical History History of back surgery History of esophagogastroduodenoscopy (EGD) Hx of biopsy Hx of colonoscopy Hx of hysterectomy Hx of total knee replacement Family History Father COPD (chronic obstructive pulmonary disease) Asthma Mother Kidney disease Kidney replaced by transplant Cancer Heart disease Sister Kidney replaced by transplant Social History Alcohol intake: never Patient Tobacco Use Status: Never used Tobacco Review of Systems Const Reports daytime sleepiness, Denies excessive sweating, Denies fatigue, Denies fever(s), Reports lethargy, Denies malaise, Denies night sweats, Denies snoring and Denies weight loss Eyes Denies blurry vision and Denies itchy eyes ENT Denies nasal congestion, Denies post nasal drip, Denies sinus pain, Denies sinus pressure and Denies other ( Thrush) Card Denies chest pain, Denies pedal edema, Denies dyspnea, Denies orthopnea and Denies paroxysmal nocturnal dyspnea Resp Denies cough, Denies hemoptysis, Denies excessive phlegm production, Denies dyspnea, Denies snoring and Denies wheezing GI Denies abdominal pain and Denies heartburn Musc Denies myalgias, Denies arthralgias and Denies joint swelling Skin/Breast Denies rash Neuro Denies memory loss and Denies seizure-like activity Psych Denies abnormal sleep pattern, Denies anxiety and Denies memory loss Endo Denies excessive sweating, Denies fatigue and Denies heat intolerance Khurram/Lymph Denies easy bruising Aller/Immun Denies itchy eyes, Denies seasonal rhinorrhea and Denies wheezing Physical Exam Vital Signs: Last Vital Signs Pulse 70 11/20/22 09:19 BP 138/77 11/20/22 09:19 Pulse Ox 98 11/20/22 09:19 Oxygen Delivery Method Room Air 11/20/22 09:19 BMI result Body Mass Index 39.0 Const General: no acute distress and alert Nutritional Appearance: obese Orientation/consciousness: Other orientation findings ( oriented) HEENT Head: Yes atraumatic Eyes General: appearance normal, both eyes and all related structures Sclerae: sclerae normal EOM: EOMs intact bilaterally Neck Neck: Yes supple Lymphatic: no lymphadenopathy noted Resp Effort & Inspection: normal respiratory effort and no use of accessory muscles Auscultation: clear to auscultation bilaterally Cardio Rate: regular rate Rhythm: regular rhythm Heart sounds: no gallops, no murmurs and no rubs Skin General skin exam: other ( warm) Extrem General: No clubbing, No cyanosis and No edema Assessment & Plan Assessment & Plan (1) COPD (chronic obstructive pulmonary disease): Code(s): J44.9 - Chronic obstructive pulmonary disease, unspecified Plan: Well controlled on Stiolto and albuterol MDI. However, Stiolto is quite expensive, will change to Bevespi. Continue albuterol MDI. Will refer to Pulmonary Rehab. (2) MICHELLE (obstructive sleep apnea): Code(s): G47.33 - Obstructive sleep apnea (adult) (pediatric) Plan: Unrestful sleep, daytime somnolence, [place] Sleepiness score of 15. Will order home sleep study. Orders: Orders Pulmonary Rehab Today J44.9 - Chronic obstructive pulmonary disease, unspecified RT home sleep study Today G47.33 - Obstructive sleep apnea (adult) (pediatric) Medications: New glycopyrrolate-formoterol 9-4.8 mcg (Bevespi Aerosphere) 2 puffs inhalation BID 30 days 10.7 grams 6RF J44.9 - Chronic obstructive pulmonary disease, unspecified Discontinued tiotropium-olodaterol 2.5-2.5 mcg/actuation (Stiolto Respimat) Discontinued Reason: Doctor's Order 2 puffs PO DAILY 4 mL 3RF Coding Level of Care Code Est Pt Level 4 (67742) Diagnoses COPD (chronic obstructive pulmonary disease) J44.9 MICHELLE (obstructive sleep apnea) G47.33
== END 2022-11-20 09:44 | disposition home or self-care (01) ==
PROVIDERS: PCP Nurse Practitioner Family; Visit Provider Internal Medicine Pulmonary Disease
DX: J44.9 Chronic obstructive pulmonary disease, unspecified (principal); G47.33 Obstructive sleep apnea (adult) (pediatric)
CPT/HCPCS: 99214

== ENCOUNTER → 2022-11-20 09:18 | Outpatient (BNVA) | payer MEDICARE, SELFPAY | PROVIDERS: PCP Nurse Practitioner Family; Visit Provider Internal Medicine Pulmonary Disease | DX: J44.9 Chronic obstructive pulmonary disease, unspecified (principal); G47.33 Obstructive sleep apnea (adult) (pediatric); Z79.899 Other long term (current) drug therapy | CPT/HCPCS: 99212 ==

== ENCOUNTER → 2023-01-01 09:44 | Outpatient (REF) | payer MEDICARE, SELFPAY | LOC: HO.SL 09:44 | PROVIDERS: PCP Nurse Practitioner Family; Visit Provider Internal Medicine Pulmonary Disease | DX: G47.33 Obstructive sleep apnea (adult) (pediatric) (principal) | CPT/HCPCS: 95806 ==

== ENCOUNTER → 2023-01-01 09:55 | Outpatient (BNV) | payer MEDICARE, SELFPAY | PROVIDERS: PCP Nurse Practitioner Family; Visit Provider Internal Medicine | DX: R06.83 Snoring (principal) | CPT/HCPCS: 95806 ==

== ENCOUNTER 2023-03-05 12:26 | Outpatient (REF) | payer MEDICARE, SELFPAY ==
--- NOTE | ~2023-03-05 | CT_ITS ---
EXAMINATION: CT ABDOMEN WITHOUT CONTRAST CLINICAL INFORMATION: Disorder of adrenal gland. COMPARISON: Prior CT examinations of the abdomen, most recently 02/25/2022. TECHNIQUE: Contiguous axial thin section helical images of the abdomen were performed without contrast. The data set was reformatted in the coronal and sagittal planes and reviewed on an independent workstation. This CT examination was performed using dose optimization techniques as appropriate, variously including the following: *Automated exposure control *Adjustment of mA and/or kV according to patient size (this includes techniques or standardized protocols for targeted exams where dose is matched to indication/reason for exam; i.e. extremities or head) *Use of iterative reconstruction technique DLP: 326 mGy-cm FINDINGS: LUNG BASES: There is moderate right base scar/subsegmental atelectasis. There are coarse mitral annular calcifications. LIVER, GALLBLADDER, AND BILIARY TREE: The liver is normal in size, shape, and attenuation. No focal hepatic lesion or biliary ductal dilatation is present. The gallbladder is unremarkable with no evidence of radiopaque gallstones, gallbladder wall thickening, or obvious pericholecystic inflammatory changes. PANCREAS: Unremarkable SPLEEN: Unremarkable ADRENAL GLANDS: The right adrenal gland again contains a 1.9 x 1.2 cm benign adenoma with precontrast Hounsfield value of -1.6 units. This requires no imaging follow-up. The left adrenal gland is unremarkable. KIDNEYS AND URETERS: The kidneys are normal in size, shape, and attenuation. No hydronephrosis, hydroureter, or calculi seen. No perinephric stranding. GASTROINTESTINAL TRACT: The small and large bowel are unremarkable. The appendix is not covered in the [id number]. ABDOMINAL WALL: No significant hernia is appreciated. LYMPH NODES: Normal VASCULAR: No abdominal aortic aneurysm is seen. OSSEOUS STRUCTURES: There is moderately severe aortoiliac atherosclerotic calcification there is multi-level marked thoracolumbar degenerative disc disease, spondylosis and Schmorl's node formation. No acute or aggressive osseous finding is noted. CT/CT abdomen wo IV con IMPRESSION: 1. A 1.9 cm benign, fat-containing right adrenal adenoma is redemonstrated. This requires no imaging follow-up. 2. There are marked degenerative changes of the thoracolumbar spine. Fleischner guidelines were followed.
== END 2023-03-05 12:27 | disposition home or self-care (01) ==
LOC: HO.CT 12:26
PROVIDERS: PCP Nurse Practitioner Family; Visit Provider Internal Medicine Endocrinology, Diabetes & Metabolism
DX: E27.8 Other specified disorders of adrenal gland (principal)
CPT/HCPCS: 74150

== ENCOUNTER 2023-03-24 09:44 | Outpatient (REF) | payer MEDICARE, SELFPAY ==
--- NOTE | ~2023-03-24 | US_ITS ---
EXAMINATION: US THYROID CLINICAL INFORMATION: Nontoxic multinodular goiter. COMPARISON: Thyroid ultrasound 03/13/2022 and 11/21/2020. TECHNIQUE: Linear transducer em-scale and color Doppler examination with attention to the region of the thyroid. FINDINGS: SIZE: Measurements of the thyroid lobes and nodules are given in sagittal, anteroposterior and transverse dimensions respectively. Right Thyroid Lobe: 4.6 x 1.9 x 2.2 cm, volume 10.1 mL. Previously 3.7 x 1.8 x 2.2 cm, volume 7.7 mL. Parenchyma: The gland echotexture is heterogeneous. Thyroid vascularity is increased. Left Thyroid Lobe: 3 x 1 x 1 cm, volume 1.6 mL. Previously 3.6 x 1.1 x 1.4 cm, volume 2.9 mL. Parenchyma: The gland echotexture is homogeneous. Thyroid vascularity is normal. Isthmus: 0.8 cm in maximum AP dimension. Previously 1 cm. Estimated total number of nodules greater than or equal to 1 cm: 4. Coil Winder nodules are described as follows: 1. Location: Isthmus. Size: 1.2 x 0.4 x 1 cm, volume 0.3 mL. Previously: 0.8 x 0.7 x 1 cm, volume 0.3 mL. Nodule characteristics: Composition: Solid (2). Echogenicity: Isoechoic (1). Shape: Not taller than wide (0). Margins: Ill-defined (0). Echogenic Foci: None (0). ACR TI-RADS total points: 3 Previous: 3 ACR TI-RADS category: 3 Previous: 3 Significant change in size (>/= 20% in 2 dimensions and minimal increase of 2 mm or 50% or greater increase in volume): No Change in features: No Change in ACR TI-RADS risk category: No 2. Location: Isthmus inferior. Size: 1.5 x 0.8 x 1.3 cm, volume 0.7 mL. Previously: 0.8 x 0.7 x 0.6 cm, volume 0.2 mL. Nodule characteristics: Composition: Solid/almost completely solid (2). Echogenicity: Hypoechoic (2). Shape: Not taller than wide (0). Margins: Smooth (0). Echogenic Foci: None (0). ACR TI-RADS total points: 4 Previous: 4 ACR TI-RADS category: 4 Previous: 4 Significant change in size (>/= 20% in 2 dimensions and minimal increase of 2 mm or 50% or greater increase in volume): Yes Change in features: No Change in ACR TI-RADS risk category: No 3. Location: Right superior. Size: 1.1 x 0.6 x 0.9 cm, volume 0.3 mL. Previously: 1.1 x 0.9 x 0.9 cm, volume 0.5 mL. Nodule characteristics: Composition: Solid (2). Echogenicity: Isoechoic (1). Shape: Not taller than wide (0). Margins: Smooth (0). Echogenic Foci: None (0). ACR TI-RADS total points: 3 Previous: 3 ACR TI-RADS category: 3 Previous: 3 Significant change in size (>/= 20% in 2 dimensions and minimal increase of 2 mm or 50% or greater increase in volume): No Change in features: No Change in ACR TI-RADS risk category: No 4. Location: Right mid. Size: 2.4 x 1.6 x 1.8 cm, volume 3.7 mL. Previously: 2 x 2 x 1.6 cm, volume 3.4 mL. Nodule characteristics: Composition: Solid (2). Echogenicity: Hypoechoic (2). Shape: Not taller than wide (0). Margins: Smooth (0). Echogenic Foci: None (0). ACR TI-RADS total points: 4 Previous: 6 ACR TI-RADS category: 4 Previous: 4 Significant change in size (>/= 20% in 2 dimensions and minimal increase of 2 mm or 50% or greater increase in volume): Yes Change in features: Yes Change in ACR TI-RADS risk category: No 5. Location: Left inferior. Size: 0.5 x 0.6 x 0.6 cm, volume 0.1 mL. Previously: 0.6 x 0.6 x 0.6 cm, volume 0.1 mL. Nodule characteristics: Composition: Solid/almost completely solid (2). Echogenicity: Hyperechoic (1). Shape: Not taller than wide (0). Margins: Ill-defined (0). Echogenic Foci: None (0). ACR TI-RADS total points: 3 Previous: 3 ACR TI-RADS category: 3 Previous: 3 Significant change in size (>/= 20% in 2 dimensions and minimal increase of 2 mm or 50% or greater increase in volume): No Change in features: No Change in ACR TI-RADS risk category: No NODES: No lymphadenopathy is seen in the tissue surrounding the thyroid gland. US/US thyroid IMPRESSION: FNA is recommended of right mid and inferior isthmus nodules if not previously performed. ACR TI-RADS RECOMMENDATION REFERENCE: Ultrasound-guided fine-needle aspiration, follow up ultrasound, no further followup. * TR1 (0 point) and TR2 (2 points): No FNA or followup * TR3 (3 points): FNA if more than or equal to 2.5 cm in maximum dimension, follow up ultrasound in 1, 3 and 5 years if 1.5 to 2.4 cm in maximum dimension. * TR4 (4-6 points): FNA if more than or equal to 1.5 cm in maximum dimension, follow up ultrasound in 1, 2, 3 and 5 years if 1 to 1.4 cm in maximum dimension. * TR5 (more than or equal to 7 points): FNA if more than or equal to 1 cm in maximum dimension, follow up ultrasound every year for 5 years if 0.5 to 0.9 cm in maximum dimension. * TR3, TR4 or TR5 nodules that are below the size threshold for follow up receive no followup.
== END 2023-03-24 09:45 | disposition home or self-care (01) ==
LOC: HO.US 09:44
PROVIDERS: PCP Nurse Practitioner Family; Visit Provider Internal Medicine Endocrinology, Diabetes & Metabolism
DX: E04.2 Nontoxic multinodular goiter (principal)
CPT/HCPCS: 76536

== ENCOUNTER 2023-05-11 12:35 | Outpatient (REF) | payer MEDICARE, SELFPAY ==
[2023-05-11 15:37] LABS: Free T4 (Free Thyroxine) 0.86 ng/dL (0.71-1.85)
[2023-05-16 06:14] LABS: Metanephrine, Free <25 pg/mL (<=57); Normetanephrines, Free 182 pg/mL (<=148); Total Metanephrine, Free 182 pg/mL (<=205)
== END 2023-05-11 12:36 | disposition home or self-care (01) ==
LOC: HO.LAB 12:35
PROVIDERS: PCP Nurse Practitioner Family; Visit Provider Internal Medicine Endocrinology, Diabetes & Metabolism
DX: E04.2 Nontoxic multinodular goiter (principal); E27.8 Other specified disorders of adrenal gland; Z79.899 Other long term (current) drug therapy
CPT/HCPCS: 36415; 83835; 84439; 84443; 99212

== ENCOUNTER 2023-05-11 12:35 | Outpatient (AMB) | payer MEDICARE, SELFPAY ==
--- NOTE | 2023-05-11 12:44 | A.OFFVIS_ITS ---
Intake Vital Signs 05/11/23 12:45 Height 5 ft Weight 199 lb 8.293 oz BMI 39.0 BP 138/64 Blood Pressure Location Rt brachial Position Sitting Pulse 58 Pulse Source Pulse Oximeter Intake Visit Reasons: F/U Adrenal adenoma-confirmed Intake Note: Patient presents today for Adrenal Adenoma follow up, last seen by Dr. August on 05/12/2022. Track Repair Worker Required: No Accompanied by: Grand Child Allergies baclofen Allergy (Severe, Verified 05/11/23 12:46) Vomiting mirtazapine [From Remeron] Allergy (Unknown, Verified 05/11/23 12:51) Unable to sleep azithromycin Adverse Reaction (Unknown, Verified 05/11/23 12:46) IRREGULAR HEART BEAT zpak Allergy (Unknown, Uncoded 05/11/23 12:46) Unknown Medication List - Last Reconciled 05/11/23 by Noe Packer MD albuterol sulfate 90 mcg/actuation 2 puffs PO QID amlodipine 2.5 mg PO DAILY apixaban (Eliquis) 5 mg PO BID cholecalciferol (vitamin D3) 50 mcg PO DAILY cyanocobalamin (vitamin B-12) (Vitamin B-12) 1,000 mcg PO DAILY dexamethasone 1 mg PO ONCE dexamethasone 1 mg PO ONCE duloxetine 20 mg PO BID furosemide 40 mg PO DAILY gabapentin 300 mg PO TID glycopyrrolate-formoterol 9-4.8 mcg (Bevespi Aerosphere) 2 puffs inhalation BID 30 days isosorbide mononitrate ER 30 mg PO DAILY lorazepam 0.5 mg PO BID PRN lovastatin 40 mg PO DAILY melatonin 10 mg PO BEDTIME metoprolol succinate ER 50 mg PO DAILY HPI HPI Comments History of Present Illness Details 82 YO Female with a PMHx COPD who is seen in F/U for a multinodular thyroid as well as an adrenal nodule. 1) Multinodular Thyroid: Official thyroid US revealed multiple nodules meeting indication for FNA biopsy. She underwent FNA biopsy 04/18/2021 of her LLP 1.3 cm, isthmus 1.1 cm and RMP 1.9 cm thyroid nodules, all with benign (bethesda category II) cytology. She does report some dysphagia and occasional hoarseness of voice. She also reports fatigue. She denies any personal history of radiation therapy to the head or the neck. She does have a family history of thyroid cancer in her Grand-Daughter. 2) Adrenal Nodule: She had a CT of the chest which captured a 1.6 cm R adrenal nodule. No HU were given. She was previously unaware of this. CT Adrenal protocol completed 12/03/2020 revealed a 1.7 cm R adrenal nodule measuring 6 HU precontrast. Absolute washout was 78%. Unfortunately no relative washout was given. This appeared unchanged from 2018. She was also noted to have a mass within the liver and was referred to GI. She is following with them for this. Recent repeat CT scan of the abdomen shows the adrenal lesion to be very low-density She does have a dorsocervical fat pad that she states has been present for a few years. She has no issues with poorly controlled HTN. Does not mention any spe lls . 24 hour urine collection revealed catech olamines and metanephrines completely WNL. 24 hour urinary cortisol was also WNL. She had a normal 1 mg overnight DSST which ruled out cristopher's. US Thyroid: 03/13/2022 Right Thyroid Lobe: 3.7 x 1.8 x 2.2 cm, volume 7.7 mL. Previously 4.4 x 1.7 x 2.4 cm, volume 9.4 mL. Parenchyma: The gland echotexture is heterogeneous. Thyroid vascularity is increased. Left Thyroid Lobe: 3.6 x 1.1 x 1.4 cm, volume 2.9 mL. Previously 3.7 x 1.3 x 1.1 cm, volume 2.8 mL. Parenchyma: The gland echotexture is heterogeneous. Thyroid vascularity is normal. Isthmus: 1.0 cm in maximum AP dimension. Previously 0.9 cm. Estimated total number of nodules greater than or equal to 1 cm: 3. Automotive Light Mechanic nodules are described as follows: 1.? Location: Isthmus. ?? ? Size: 0.8 x 0.7 x 1.0 cm, volume 0.3 mL. ?? ? Previously: 1.0 x 0.8 x 1.0 cm, volume 0.4 mL. ?? ? Nodule characteristics: ?? ? Composition: Solid (2). ?? ? Echogenicity: Hyperechoic (1). ?? ? Shape: Not taller than wide (0). ?? ? Margins: Smooth (0). ?? ? Echogenic Foci: None (0).? ACR TI-RADS total points: 3 Previous: 3 ?? ? ACR TI-RADS category: 3 Previous: 3 ? Significant change in size (>/= 20% in 2 dimensions and minimal increase of 2 mm or 50% or greater increase in volume): None ?? ? Change in features: None ?? ? Change in ACR TI-RADS risk category: No change 2.? Location: Isthmus inferior. ?? ? Size: 0.8 x 0.7 x 0.6 cm, volume 0.2 mL. ?? ? Previously: 1.1 x 1.0 x 1.2 cm, volume 0.7 mL. ?? ? Nodule characteristics: ?? ? Composition: Solid (2). ?? ? Echogenicity: Hypoechoic (2). ?? ? Shape: Not taller than wide (0). ?? ? Margins: Smooth (0). ?? ? Echogenic Foci: None (0).? ACR TI-RADS total points: 4 Previous: 4 ?? ? ACR TI-RADS category: 4 Previous: 4 ? Significant change in size (>/= 20% in 2 dimensions and minimal increase of 2 mm or 50% or greater increase in volume): None ?? ? Change in features: None ?? ? Change in ACR TI-RADS risk category: No change 3.? Location: Right superior. ?? ? Size: 1.1 x 0.9 x 0.9 cm, volume 0.5 mL. ?? ? Previously: 1.0 x 0.7 x 1.1 cm, volume 0.4 mL. ?? ? Nodule characteristics: ?? ? Composition: Solid (2). ?? ? Echogenicity: Isoechoic (1). ?? ? Shape: Not taller than wide (0). ?? ? Margins: Smooth (0). ?? ? Echogenic Foci: None (0). ? ACR TI-RADS total points: 3 Previous: 4 ?? ? ACR TI-RADS category: 3 Previous: 4 ? Significant change in size (>/= 20% in 2 dimensions and minimal increase of 2 mm or 50% or greater increase in volume): None ?? ? Change in features: None ?? ? Change in ACR TI-RADS risk category: No change 4.? Location: Right mid. ?? ? Size: 2.0 x 2.0 x 1.6 cm, volume 3.4 mL. ?? ? Previously: 2.3 x 1.7 x 2.2 cm, volume 4.5 mL. ?? ? Nodule characteristics: ?? ? Composition: Solid (2). ?? ? Echogenicity: Cannot be determined (1). ?? ? Shape: Taller than wide (3). ?? ? Margins: Smooth (0). ?? ? Echogenic Foci: None (0).? ACR TI-RADS total points: 6 Previous: 6 ?? ? ACR TI-RADS category: 4 Previous: 4 ? Significant change in size (>/= 20% in 2 dimensions and minimal increase of 2 mm or 50% or greater increase in volume): None ?? ? Change in features: None ?? ? Change in ACR TI-RADS risk category: No change 5.? Location: Left inferior. ?? ? Size: 0.6 x 0.6 x 0.6 cm, volume 0.1 mL. ?? ? Previously: 1.0 x 0.8 x 1.2 cm, volume 0.5 mL. ?? ? Nodule characteristics: ?? ? Composition: Solid (2). ?? ? Echogenicity: Isoechoic (1). ?? ? Shape: Not taller than wide (0). ?? ? Margins: Smooth (0). ?? ? Echogenic Foci: None (0). ? ACR TI-RADS total points: 3 Previous: 4 ?? ? ACR TI-RADS category: 3 Previous: 4 ? Significant change in size (>/= 20% in 2 dimensions and minimal increase of 2 mm or 50% or greater increase in volume): None ?? ? Change in features: None ?? ? Change in ACR TI-RADS risk category: No change NODES: No lymphadenopathy is seen in the tissue surrounding the thyroid gland. CT Without Contrast: 02/25/2022 FINDINGS: LUNG BASES: Plate-like atelectatic changes are seen in the right lung base. There is a small hiatal hernia. LIVER, GALLBLADDER, BILIARY TREE: The liver is normal size, contour and density.? PANCREAS: The pancreas is normal size and homogeneous in density without enlargement or lesion.? SPLEEN: The spleen is unremarkable.? ADRENAL GLANDS AND KIDNEYS: There is a 1.5 cm hypodense right adrenal lesion measuring -6 Hounsfield units suggestive of benign adenoma. No workup needed left adrenal gland is unremarkable.? BOWEL LOOPS: Scattered stool and gas is seen throughout the colon without any significant distention. The small bowel loops are normal caliber. LYMPH NODES: No lymph nodes visualized on this limited CT. VASCULAR: Proximal abdominal aorta is normal caliber except for mild atherosclerosis. BONES: Unremarkable.? CT/CT abdomen wo IV con IMPRESSION: 1.? A 1.5 cm right adrenal benign adenom a. No further workup needed. 2.? Mild constipation. 3. Small hiatal hernia. Labs: Laboratory Tests 11/01/21 11/01/21 11/01/21 08:02 08:02 08:02 Renin Aldosterone 25-OH Vitamin D To iraida 34.9 TSH Free T4 DHEA Sulfate Random Cortisol 1.5 ACTH Plas Tot Catechola mine Dopamine Epinephrine Norepinephrine Plasma Free Metane ph Plasma Free Normet a Plas Total Metanep h Ur 24 Hour Volume Ur Creatinine 24 H our Ur Free Cortisol 2 4 Hr U Norepinephrine 2 4 Hr U Free Metanephrin e U Normetanephrine 24h U Tot Metanephrine 24h Ur Dopamine 24 Hr U Tot Catecholamin e 24h Dexamethasone 184 11/05/21 11/05/21 11/05/21 07:47 07:47 07:47 Renin Aldosterone 11 25-OH Vitamin D To iraida TSH 1.58 Free T4 0.88 DHEA Sulfate 62 Random Cortisol ACTH 17 Plas Tot Catechola mine Dopamine Epinephrine Norepinephrine Plasma Free Metane ph Plasma Free Normet a Plas Total Metanep h Ur 24 Hour Volume Ur Creatinine 24 H our Ur Free Cortisol 2 4 Hr U Norepinephrine 2 4 Hr U Free Metanephrin e U Normetanephrine 24h U Tot Metanephrine 24h Ur Dopamine 24 Hr U Tot Catecholamin e 24h Dexamethasone 11/05/21 11/05/21 11/05/21 07:47 07:47 07:47 Renin 2.55 Aldosterone 25-OH Vitamin D To iraida TSH Free T4 DHEA Sulfate Random Cortisol 10.6 ACTH Plas Tot Catechola mine Dopamine Epinephrine Norepinephrine Plasma Free Metane ph <25 Plasma Free Normet a 81 Plas Total Metanep h 81 Ur 24 Hour Volume Ur Creatinine 24 H our Ur Free Cortisol 2 4 Hr U Norepinephrine 2 4 Hr U Free Metanephrin e U Normetanephrine 24h U Tot Metanephrine 24h Ur Dopamine 24 Hr U Tot Catecholamin e 24h Dexamethasone 11/05/21 11/07/21 11/07/21 07:47 08:00 08:00 Renin Aldosterone 25-OH Vitamin D To iraida TSH Free T4 DHEA Sulfate Random Cortisol ACTH Plas Tot Catechola mine 409 Dopamine <20 Epinephrine <40 Norepinephrine 409 Plasma Free Metane ph Plasma Free Normet a Plas Total Metanep h Ur 24 Hour Volume 700 Ur Creatinine 24 H our 0.78 Ur Free Cortisol 2 4 Hr 9.1 U Norepinephrine 2 4 Hr U Free Metanephrin e 37 L U Normetanephrine 24h 232 U Tot Metanephrine 24h 269 Ur Dopamine 24 Hr U Tot Catecholamin e 24h Dexamethasone 11/07/21 08:00 Renin Aldosterone 25-OH Vitamin D To iraida TSH Free T4 DHEA Sulfate Random Cortisol ACTH Plas Tot Catechola mine Dopamine Epinephrine Norepinephrine Plasma Free Metane ph Plasma Free Normet a Plas Total Metanep h Ur 24 Hour Volume Ur Creatinine 24 H our Ur Free Cortisol 2 4 Hr U Norepinephrine 2 4 Hr 14 L U Free Metanephrin e U Normetanephrine 24h U Tot Metanephrine 24h Ur Dopamine 24 Hr 84 U Tot Catecholamin e 24h 14 L Dexamethasone Has developed hot flashes . C/o sweating, paleness . [facility] Medical History Adrenal mass, right Liver mass Multinodular thyroid Vitamin D deficiency Surgical History Hx of biopsy History of esophagogastroduodenoscopy (EGD) Hx of colonoscopy Hx of total knee replacement History of back surgery Hx of hysterectomy Family History Father COPD (chronic obstructive pulmonary disease) Asthma Mother Kidney disease Kidney replaced by transplant Cancer Heart disease Sister Kidney replaced by transplant Social History Alcohol intake: never Patient Tobacco Use Status: Never used Tobacco Physical Exam Vital Signs: BMI result Body Mass Index 39.0 Const Other: Absence of cushingoid features. Thyroid gland is normal size weighs about 15 g. There are no palpable thyroid nodules Assessment & Plan Assessment & Plan (1) Multinodular thyroid: Code(s): E04.2 - Nontoxic multinodular goiter Plan: This 82-year-old white female with a history of multinodular goiter. She underwent FNA biopsy 04/24/2022 of her RMP 1.0 cm and her RUP 1.1 cm thyroid nodules both with benign cytology. Recent thyroid ultrasound showed no change in the size or characteristics of the nodules. She appears to be clinically euthyroid. Plan is to check TSH and free T4. Assuming both for normal, patient returned to the care of her primary care provider who could order a thyroid ultrasound about 2 years time. If the size or characteristics of the nodules are change, the patient referred back to endocrinology for management of the nodules (2) Adrenal mass, right: Code(s): E27.8 - Other specified disorders of adrenal gland Plan: Imaging characteristics-benign mass. Previous workup for hypersecretion was normal. Will repeat 1 mg dexamethasone suppression test with cortisol and dexamethasone level. We will continue to follow on a yearly basis. No need for any further imaging. Will also check plasma metanephrines and normetanephrines in light of the new symptoms of sweating and palpitations Orders: Orders Thyroid Stimulating Hormone Today E04.2 - Nontoxic multinodular goiter Free T4 (Free Thyroxine) Today E04.2 - Nontoxic multinodular goiter Metanephrines, Plasma Today E27.8 - Other specified disorders of adrenal gland Cortisol Random 1 Week E27.8 - Other specified disorders of adrenal gland Dexamethasone 1 Week E27.8 - Other specified disorders of adrenal gland Medications: New dexamethasone 1 mg PO ONCE 1 tab 0RF Discontinued dexamethasone Discontinued Reason: Doctor's Order 1 mg PO ONCE 1 tab 0RF E27.8 - Other specified disorders of adrenal gland Coding Level of Care Code Est Pt Level 3 (51556) Diagnoses Multinodular thyroid E04.2 Adrenal mass, right E27.8
[2023-05-11 12:45] VITALS: BP 138/64; PULSE 58; BMI 39.0
== END 2023-05-11 13:31 | disposition home or self-care (01) ==
PROVIDERS: PCP Nurse Practitioner Family; Visit Provider Internal Medicine Endocrinology, Diabetes & Metabolism
DX: E04.2 Nontoxic multinodular goiter (principal); E27.8 Other specified disorders of adrenal gland
CPT/HCPCS: 99213

== ENCOUNTER 2023-05-20 10:02 | Outpatient (REF) | payer MEDICARE, SELFPAY ==
[2023-05-20 14:22] LABS: Cortisol Random 1.4 ug/dL
== END 2023-05-20 10:03 | disposition home or self-care (01) ==
LOC: HO.HMGCLDS 10:02
PROVIDERS: PCP Nurse Practitioner Family; Visit Provider Internal Medicine Endocrinology, Diabetes & Metabolism
DX: E27.8 Other specified disorders of adrenal gland (principal)
CPT/HCPCS: 36415; 82533

== ENCOUNTER 2023-05-22 07:56 | Outpatient (REF) | payer MEDICARE, SELFPAY ==
[2023-05-22 11:18] LABS: Creatinine, mg/dL 53.73
[2023-05-22 12:41] LABS: Creatinine, 24Hr Urine 0.5 G/Day (1.0-2.0); Total Volume 24 Hour Urine 1000 mL
[2023-05-28 09:24] LABS: Dexamethasone 113 ng/dL
[2023-05-29 07:38] LABS: Metanephrine, Free 24U 32 mcg/24 h (90-315); Normetanephrine, Free 24U 172 mcg/24 h (122-676); Total Metanephrine, Free 24U 204 mcg/24 h (224-832); Total Volume 24U 1000 mL
== END 2023-05-22 07:57 | disposition home or self-care (01) ==
LOC: HO.HMGCLDS 07:56
PROVIDERS: PCP Nurse Practitioner Family; Visit Provider Internal Medicine Endocrinology, Diabetes & Metabolism
DX: E27.8 Other specified disorders of adrenal gland (principal)
CPT/HCPCS: 36415; 80299; 82570; 83835

== ENCOUNTER 2023-06-30 14:57 | Outpatient (AMB) | payer MEDICARE, SELFPAY ==
[2023-06-30 15:00] VITALS: BP 128/66; PULSE 73; O2SAT 95; BMI 38.5
--- NOTE | 2023-06-30 15:00 | A.OFFVIS_ITS ---
Vital Signs 06/30/23 15:00 Height 5 ft Weight 197 lb 5.019 oz BMI 38.5 BP 128/66 Blood Pressure Location Rt brachial Position Sitting Pulse 73 Pulse Source Doppler Pulse Oximetry (%) 95 Oxygen Delivery Method Room Air Intake Visit Reasons: COPD Allergies baclofen Allergy (Severe, Verified 06/30/23 15:07) Vomiting mirtazapine [From Remeron] Allergy (Unknown, Verified 06/30/23 15:07) Unable to sleep azithromycin Adverse Reaction (Unknown, Verified 06/30/23 15:07) IRREGULAR HEART BEAT zpak Allergy (Unknown, Uncoded 05/11/23 12:46) Unknown HPI HPI COPD: Details: 82-year-old lady, former 30 pack-year smoker, quit 1993 , followed for moderate COPD and dyspnea on exertion. ? She has been using Stiolto ( she does not tolerate powder inhalers) and Lasix 40 mg daily with good control of her dyspnea. She denies recent exacerbations. Her sleep study did not show underlying sleep apnea. [facility] Medical History Adrenal mass, right Liver mass Multinodular thyroid Vitamin D deficiency Surgical History Hx of biopsy History of esophagogastroduodenoscopy (EGD) Hx of colonoscopy Hx of total knee replacement History of back surgery Hx of hysterectomy Family History Father COPD (chronic obstructive pulmonary disease) Asthma Mother Kidney disease Kidney replaced by transplant Cancer Heart disease Sister Kidney replaced by transplant Social History Alcohol intake: never Patient Tobacco Use Status: Never used Tobacco Review of Systems Const Denies daytime sleepiness, Denies excessive sweating, Denies fatigue, Denies fever(s), Denies lethargy, Denies malaise, Denies night sweats, Denies snoring and Denies weight loss Eyes Denies blurry vision and Denies itchy eyes ENT Denies nasal congestion, Denies post nasal drip, Denies sinus pain, Denies sinus pressure and Denies other ( Thrush) Card Denies chest pain, Denies pedal edema, Denies dyspnea, Denies orthopnea and Denies paroxysmal nocturnal dyspnea Resp Denies cough, Denies hemoptysis, Denies excessive phlegm production, Denies dyspnea, Denies snoring and Denies wheezing GI Denies abdominal pain and Denies heartburn Musc Denies myalgias, Denies arthralgias and Denies joint swelling Skin/Breast Denies rash Neuro Denies memory loss and Denies seizure-like activity Psych Denies abnormal sleep pattern, Denies anxiety and Denies memory loss Endo Denies excessive sweating, Denies fatigue and Denies heat intolerance Khurram/Lymph Denies easy bruising Aller/Immun Denies itchy eyes, Denies seasonal rhinorrhea and Denies wheezing Physical Exam Vital Signs: Last Vital Signs Pulse 73 06/30/23 15:00 BP 128/66 06/30/23 15:00 Pulse Ox 95 06/30/23 15:00 Oxygen Delivery Method Room Air 06/30/23 15:00 BMI result Body Mass Index 38.5 Const General: no acute distress and alert Nutritional Appearance: obese Orientation/consciousness: Other orientation findings ( oriented) HEENT Head: Yes atraumatic Eyes General: appearance normal, both eyes and all related structures Sclerae: sclerae normal EOM: EOMs intact bilaterally Neck Neck: Yes supple Lymphatic: no lymphadenopathy noted Resp Effort & Inspection: normal respiratory effort and no use of accessory muscles Auscultation: clear to auscultation bilaterally Cardio Rate: regular rate Rhythm: regular rhythm Heart sounds: no gallops, no murmurs and no rubs Skin General skin exam: other ( warm) Extrem General: No clubbing, No cyanosis and No edema Assessment & Plan Assessment & Plan (1) COPD (chronic obstructive pulmonary disease): Code(s): J44.9 - Chronic obstructive pulmonary disease, unspecified Category: Medical Plan: Well controlled on Stiolto and albuterol MDI. Continue current regimen. (2) Dyspnea on exertion: Code(s): R06.00 - Dyspnea, unspecified Category: Medical Plan: Well controlled on Lasix 40 mg daily. Continue current regimen. Coding Level of Care Code Est Pt Level 4 (09492) Diagnoses COPD (chronic obstructive pulmonary disease) J44.9 Dyspnea on exertion R06.00
== END 2023-06-30 15:17 | disposition home or self-care (01) ==
PROVIDERS: PCP Nurse Practitioner Family; Visit Provider Internal Medicine Pulmonary Disease
DX: J44.9 Chronic obstructive pulmonary disease, unspecified (principal); R06.00 Dyspnea, unspecified
CPT/HCPCS: 99214

== ENCOUNTER → 2023-06-30 14:57 | Outpatient (BNVA) | payer MEDICARE, SELFPAY | PROVIDERS: PCP Nurse Practitioner Family; Visit Provider Internal Medicine Pulmonary Disease | DX: J44.9 Chronic obstructive pulmonary disease, unspecified (principal); R06.00 Dyspnea, unspecified; Z79.899 Other long term (current) drug therapy | CPT/HCPCS: 99212 ==

== ENCOUNTER 2024-03-30 13:07 | Outpatient (AMB) | payer MEDICARE, SELFPAY ==
[2024-03-30 13:15] VITALS: BP 122/62; PULSE 70; O2SAT 94; BMI 38.1
--- NOTE | 2024-03-30 13:15 | A.OFFVIS_ITS ---
Vital Signs 03/30/24 13:15 Height 5 ft Weight 195 lb 1.745 oz BMI 38.1 BP 122/62 Blood Pressure Location Lt brachial Position Sitting Pulse 70 Pulse Source Doppler Pulse Oximetry (%) 94 Oxygen Delivery Method Room Air Intake Visit Reasons: COPD Allergies baclofen Allergy (Severe, Verified 06/30/23 15:07) Vomiting mirtazapine [From Remeron] Allergy (Unknown, Verified 06/30/23 15:07) Unable to sleep azithromycin Adverse Reaction (Unknown, Verified 06/30/23 15:07) IRREGULAR HEART BEAT zpak Allergy (Unknown, Uncoded 05/11/23 12:46) Unknown HPI HPI COPD: Details: 83-year-old lady, former 30 pack-year smoker, quit 1993 , followed for moderate COPD and dyspnea on exertion. ? She has been using Stiolto ( she does not tolerate powder inhalers) and previously Lasix 40 mg daily with good control of her dyspnea. She denies recent exacerbations. Her dyspnea on exertion has been worsening as her primary care has cut down her Lasix to 20 mg daily secondary to concern for dehydration, as a result she has been having worsening lower extremity edema, orthopnea, dyspnea on exertion PFSH Medical History Adrenal mass, right Liver mass Multinodular thyroid Vitamin D deficiency Surgical History Hx of biopsy History of esophagogastroduodenoscopy (EGD) Hx of colonoscopy Hx of total knee replacement History of back surgery Hx of hysterectomy Family History Father COPD (chronic obstructive pulmonary disease) Asthma Mother Kidney disease Kidney replaced by transplant Cancer Heart disease Sister Kidney replaced by transplant Social History Alcohol intake: never Patient Tobacco Use Status: Never used Tobacco Review of Systems Const Denies daytime sleepiness, Denies excessive sweating, Denies fatigue, Denies fever(s), Denies lethargy, Denies malaise, Denies night sweats, Denies snoring and Denies weight loss Eyes Denies blurry vision and Denies itchy eyes ENT Denies nasal congestion, Denies post nasal drip, Denies sinus pain, Denies sinus pressure and Denies other ( Thrush) Card Denies chest pain, Reports pedal edema, Denies dyspnea, Reports dyspnea on exertion, Reports orthopnea and Denies paroxysmal nocturnal dyspnea Resp Denies cough, Denies hemoptysis, Denies excessive phlegm production, Denies dyspnea, Reports dyspnea on exertion, Denies snoring and Denies wheezing GI Denies abdominal pain and Denies heartburn Musc Denies myalgias, Denies arthralgias and Denies joint swelling Skin/Breast Denies rash Neuro Denies memory loss and Denies seizure-like activity Psych Denies abnormal sleep pattern, Denies anxiety and Denies memory loss Endo Denies excessive sweating, Denies fatigue and Denies heat intolerance Khurram/Lymph Denies easy bruising Aller/Immun Denies itchy eyes, Denies seasonal rhinorrhea and Denies wheezing Physical Exam Vital Signs: Last Vital Signs Pulse 70 03/30/24 13:15 BP 122/62 03/30/24 13:15 Pulse Ox 94 03/30/24 13:15 Oxygen Delivery Method Room Air 03/30/24 13:15 BMI result Body Mass Index 38.1 Const General: no acute distress and alert Nutritional Appearance: obese Orientation/consciousness: Other orientation findings ( oriented) HEENT Head: Yes atraumatic Eyes General: appearance normal, both eyes and all related structures Sclerae: sclerae normal EOM: EOMs intact bilaterally Neck Neck: Yes supple Lymphatic: no lymphadenopathy noted Resp Effort & Inspection: normal respiratory effort and no use of accessory muscles Auscultation: clear to auscultation bilaterally Cardio Rate: regular rate Rhythm: regular rhythm Heart sounds: no gallops, no murmurs and no rubs Skin General skin exam: other ( warm) Extrem General: No clubbing, No cyanosis and Yes edema (2+ bilateral) Assessment & Plan Assessment & Plan (1) COPD (chronic obstructive pulmonary disease): Code(s): J44.9 - Chronic obstructive pulmonary disease, unspecified Category: Medical Plan: Well controlled on current regimen of Stiolto and albuterol MDI. Continue current regimen. (2) Dyspnea on exertion: Code(s): R06.00 - Dyspnea, unspecified Category: Medical Plan: Worsening dyspnea on exertion, orthopnea, lower extremity edema is primary care provider cut patient's diuretic to 20 mg daily. Patient has been advised to discuss increasing her diuretic dose with the primary care provider or restaurant mgr. Coding Level of Care Code Est Pt Level 4 (27894) Diagnoses COPD (chronic obstructive pulmonary disease) J44.9 Dyspnea on exertion R06.00
--- OUTSIDE RECORDS SUMMARY | 2024-03-30 14:30 | XMS_ITS | Encounter Summary ---
Author Organization [facility], Address [address] [place] [address] Phone Care Team Providers Care Technical Sales Director Name Role Phone Stephanie Stuart [employer]ING [employer] WORKER Primary Care Provider [phone] Reason for Visit * Reason Comments Med Refill Encounter Details Date Type Department Care Team (Late st Contact Info) Description 12/02/2022 Refill [facility] - [address] [place] [address] [place] [address] Hermann Umaña MD [address] [facility] [place] [id number] Social History Tobacco Use Types Packs/Day Years Used Date Smoking Tobacco: Never Assessed Comments Unknown Sex and Gender Information Value Date Recorded Sex Assigned at Not on file Legal Sex Female 10:51 AM EST Gender Identity Not on file Sexual Orientation Not on file documented as of this encounter Plan of Treatment Not on file documented as of this encounter Visit Diagnoses Not on filedocumented in this encounter Care Teams Technical Sales Director Relationship Specialty Start Date End Date Stephanie Stuart NP [address] [place] [address] [place] [phone] PCP - General Nurse Practitioner 08/01/22 documented as of this encounter
--- OUTSIDE RECORDS SUMMARY | 2024-03-30 14:30 | XMS_ITS | Clinical Summary ---
Author Organization [facility], Address [address] [place] [address] Phone Care Team Providers Care Esol Instructor Name Role Phone Stephanie Stuart NP Primary Care Provider [phone] Medications acetaminophen (TYLENOL) 500 MG tablet Take by mouth every 6 (six) hours if needed for mild pain Active Melatonin 10 MG capsule Take by mouth Active DULoxetine (CYMBALTA) [address] capsule Take 60 mg by mouth 1 (one) time each day Do not crush or chew. Active apixaban (Eliquis) 5 MG tablet Take 5 mg by mouth in the morning and 5 mg in the evening. Active furosemide (LASIX) 40 MG tablet Take 40 mg by mouth in the morning and 40 mg in the evening. Active gabapentin (NEURONTIN) 300 MG capsule Take 300 mg by mouth in the morning and 300 mg in the evening and 300 mg before bedtime. Active lovastatin (MEVACOR) 40 MG tablet Take 40 mg by mouth every night Active metoprolol succinate XL (TOPROL XL) 50 MG 24 hr tablet Take 50 mg by mouth 1 (one) time each day Do not crush or chew. Active cyanocobalamin (VITAMIN B-12) 1000 MCG tablet Take 1,000 mcg by mouth 1 (one) time each day Active cholecalciferol (VITAMIN D-3) 50 MCG (2000 UT) capsule Take 2,000 Units by mouth 1 (one) time each day Active calcitriol (ROCALTROL) 0.5 MCG capsule Take 1 capsule (0.5 mcg total) by mouth every other day 45 capsule 3 09/09/2023 Active Active Problems Problem Noted Date Diagnosed Date Stage 3a chronic kidney disease 09/09/2022 Renal osteodystrophy 09/09/2022 Stage 3b chronic kidney disease 09/09/2022 Parapelvic renal cyst 09/09/2022 Anemia 09/08/2022 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 Stage 3 chronic kidney disease 09/08/2022 Vitamin D deficiency 09/08/2022 Impaired fasting glucose 09/08/2022 Immunizations Name Administration Dates Next Due Influenza Split High Dose Preservative Free IM 0 10/24/2019 Social History Tobacco Use Types Packs/Day Years Used Date Smoking Tobacco: Never Assessed Comments Unknown Sex and Gender Information Value Date Recorded Sex Assigned at Not on file Legal Sex Female 10:51 AM EST Gender Identity Not on file Sexual Orientation Not on file Plan of Treatment Health Maintenance Due Date Last Done Comments Pneumococcal Vaccine: 65+ Ye ars (1 of 2 - PCV) 08/23/1946 Influenza Vaccine (#1) 2023 10/24/2019 Hepatitis B Vaccine Aged Out No longe r eligible based on patient's age to complete this topic Insurance [facility]ICARE [facility] Care Teams Esol Instructor Relationship Specialty Start Date End Date Stephanie Stuart NP [address] [place] [phone] PCP - General Nurse Practitioner 08/01/22
--- OUTSIDE RECORDS SUMMARY | 2024-03-30 14:30 | XMS_ITS ---
Author Organization [facility]. Address [address] [place] [address] Care Team Providers Care Materials Inspector Name Role Phone Holly Pires Primary Care Provider Gricelda Jean [phone] REASON FOR VISIT EP SMALL LACERATION Encounters Encounter Location Date Provider Diagnosis [facility] [address] [place] [address] 10/28/2022 Gricelda Jean Plan Of Treatment No Information Progress Notes * Margie GARCIA ADOB:1940 (83 yo F)Acc No.[id number]:10/28/2022 Patient:?Margie GARCIA Appointment Provider:?KAITLIN Reed RN :1940???Age:82 Y???Sex:Female D ate:10/28/2022 Address:[address] [place], [place] [phone] Pcp:Holly Pires Subjective: * Chief Complaints: * ???1. EP SMALL LACERATION. * Medical History:? Objective: * Vitals:? Assessment: Plan: * Treatment: Care Plan: * Problems:? * Images: * Electronic signature of Tereso in AIME Jean on 03/30/2024 at 02:30 PM EST Sign off status: Pending * Appointment Provider:?KAITLIN Reed RN Date:?10/28/2022 Generated for Printing/Faxing/eTransmitting on:?03/30/2024 02:30 PM EST
--- OUTSIDE RECORDS SUMMARY | 2024-03-30 14:30 | XMS_ITS | Patient Health Record ---
Author Organization [employer] [facility]. Address [address] [place] [address] Care Team Providers Care Custom Stock Maker Name Role Phone Holly Pires Primary Care Provider [phone] Allergies Allergen (clinical drug ingredient) Drug/Non Drug Allergy documented on EMR Reaction Allergy Type Onset Date Status guaifenesin Robafen vomiting Drug Allergy Activ e azithromycin Azithromycin A-fib Drug Allergy A ctive baclofen Baclofen stomach upset Drug Allergy Act andreina Pollen Pollen vomiting Allergy Active Reason For Referral No Information Medications Medication SIG (Take, Route, Frequency, Duration) Notes Start Date End Date Status Calcitriol 1 MCG/ML 1 mL Orally Once a day Active buPROPion HCl 100 MG 1 tablet Orally Twi ce a day 300 mg Active Amoxicillin-Pot Clavulanate 875-125 MG TAKE 1 TABLET BY MOUTH TWICE A DAY FOR 7 DAYS Oral for 7 Days Not-Taking DULoxetine HCl 60 MG Oral for 90 Days Active Metoprolol Succinate ER 50 MG 1 tablet Orally Once a day Active Ciprofloxacin HCl 500 MG 1 tablet Orally every 12 hrs for 10 days 10/03/2023 Active amLODIPine Besylate 5 MG 1 tablet Orally Once a day Active metroNIDAZOLE 500 MG 1 tablet Orally Twi ce a day for 10 days 10/03/2023 Active Isosorbide Dinitrate 5 MG 1 tablet Orall y Twice a day Active Stiolto Respimat 2.5-2.5 MCG/ACT 2 puffs Inhalation Once a day Active Eliquis 5 MG Oral for 30 Days Active Furosemide 40 MG Oral for 90 Days Active Atorvastatin Calcium 80 MG TAKE 1 TABLET BY MOUTH EVERYDAY AT BEDTIME Oral for 90 Days Active Social History Tobacco Use: Social History Observation Description Date Details (start date - stop date) Never Smoker NA - NA Tobacco Use/Smoking Question Answer Notes Are you a former smoker How long has it been since you last smoked? > 10 years Sexual History Question Answer Notes Had sex in the past 12 months (vaginal, oral, or anal)? No Have you ever had a Sexually transmitted disease ? No Last menstrual period hysterectomy SBIRT (2018 Edition) Question Answer Notes Patient refused/declined SBIRT screening at this time? No 1. How often do you have a drink containing alco hol? Never 3. How often do you have five or more drinks on one occasion? Never SCORE 0 Interpretation Negative How many times in the past y ear have you used an illegal drug or used a prescription medication for non-medical reasons? 0 Total Count 0 Interpretation Negative Tobacco Control (Standard) Question Answer Notes Tobacco use: Nonsmoker Problems Problem Type SNOMED Code ICD Code Onset Dates Problem Status W/U Status Risk Notes Problem 397276976 Diverticulitis (K57.92) Active confirmed Problem 33722602 Allergic rhiniti s, unspecified seasonality, unspecified trigger (J30.9) Active confirmed Vital Signs Heart Rate 64 /min 10/03/2023 Temperature 98.2 degrees Fahrenheit 10/03/2023 Respiratory Rate 17 /min 10/03/2023 Blood pressure diastolic 69 mm Hg 10/03/2023 Oximetry 97 % 10/03/2023 Height 60 in 10/03/2023 Blood pressure systolic 116 mm Hg 10/03/2023 Weight 196.8 lbs 10/03/2023 BMI 38.43 kg/m2 10/03/2023 Encounters Encounter Location Date Provider Diagnosis [facility] [address] [place] [address] 10/03/2023 Holly Pires Dietary surveillance and counseling Z71.3 ; Diverticulitis K57.92 ; Exercise counseling Z71.82 ; Encounter for screening Z13.9 and Depression screen Z13.31 Assessments Encounter Date Diagnosis (ICD Code) Assessment Notes Treat ment Notes Treatment Clinical Notes 10/03/2023 Dietary surveillance and counseling (ICD-10 - Z71.3) Counseled the patient on the importance of eating a healthy diet 10/03/2023 Diverticulitis (ICD-10 - K57.92) Take your antibiotics as prescribed and until all are gone. Symptoms should improve within 2-3 days from starting antibiotics. Continue medications for 10-14 days. Avoid nuts, corn, and popcorn. Seek medical treatment for increase in pain, onset of fever, chills, bleeding. 10/03/2023 Exercise counseling (ICD-10 - Z71.82) Counseled the patient on importance of physical activity at least 3 - 5 times a week. Also encouraged the patient to increase daily activity. 10/03/2023 Encounter for screening (ICD-10 - Z13.9) Patient does not use or abuse alcohol/substances . Encouraged patient to stay away from alcohol/substance use and abuse. Patient verbalized understanding. 10/03/2023 Depression screen (ICD-10 - Z13.31) Nurse administered PHQ-2 depression screening negative results noted 10/03/2023 Other SMART CARE UNAVAILABLE TO PRINT MED INFO Plan Of Treatment No Information Insurance Providers Payer Name Payer Address Payer Phone Subscriber Number Group Number Insured Name Patient Relationship to Insured Coverage Start Date Coverage End Date Medicare [employer] [address] [place] [address] [id number] Margie Jackson Self - patient is the insured [facility] [address] [place] [address] [phone] [id number] Margie Jackson Self - patient is the insured Medical (General) History Medical History History ICD Code diverticulitis seasonal allergies HLD HTN vitamin D deficient Surgical History Surgery Date(Month/Year) back surgery knee R replacement Hysterectomy Hospitalization History Reason Date(Month/Year) view surgical hx above x3 chilbirths
--- OUTSIDE RECORDS SUMMARY | 2024-03-30 14:30 | XMS_ITS ---
Author Organization [facility]. Address [address] [place] [address] Care Team Providers Care Asset Protection Manager Name Role Phone Holly Pires Primary Care Provider REASON FOR VISIT appt-1 week f/u Encounters Encounter Location Date Provider Diagnosis [facility] [address] [place] [facility] [place] [address] 10/10/2023 Holly Pires Plan Of Treatment No Information Progress Notes * Margie GARCIA ADOB:1940 (83 yo F)Acc No.[id number]:10/10/2023 Patient:?RADHA, Margie Halima Appointment Provider:?AIME Martell :1940???Age:83 Y???Sex:Female D ate:10/10/2023 Address:[address] [place], [place] [phone] Subjective: * Chief Complaints: * ???1. Appt-1 week f/u. * Medical History:? Objective: * Vitals:? Assessment: Plan: * Treatment: Care Plan: * Problems:? * Images: * Electronic signature of AIME Moreira on 03/30/2024 at 02:30 PM EST Sign off status: Pending * Appointment Provider:?AIME Martell Date:?10/10/2023 Generated for Printing/Faxing/eTransmitting on:?03/30/2024 02:30 PM EST
--- OUTSIDE RECORDS SUMMARY | 2024-03-30 14:30 | XMS_ITS | Clinical Summary ---
Author Organization [facility] Address [address] [place] [address] Care Team Providers Care Fleet Manager/Dispatch Name Role Phone Unavailable Primary Care Provider Unavailabl e Social History Tobacco Use Types Packs/Day Years Used Date Smoking Tobacco: Never Assessed Sex and Gender Information Value Date Recorded Sex Assigned at Not on file Gender Identity Not on file Sexual Orientation Not on file Plan of Treatment Health Maintenance Due Date Last Done Comments DTaP/Tdap/Td Vaccines (1 - Tdap) 08/23/1958 Pneumococcal Vaccines 50+ (1 of 1 - PCV) 08/23/1989 Zoster (Shingles) Vaccine (1 of 2) 08/23/1989 RSV Vaccine 60 years and old er and Patients (1 - 1-dose 75+ series) 08/23/2014 COVID-19 Vaccine (2023-2 5 season) 2023 Hepatitis B Vaccines Aged Out No long er eligible based on patient's age to complete this topic
== END 2024-03-30 13:38 | disposition home or self-care (01) ==
PROVIDERS: PCP Nurse Practitioner Family; Visit Provider Internal Medicine Pulmonary Disease
DX: J44.9 Chronic obstructive pulmonary disease, unspecified (principal); R06.00 Dyspnea, unspecified
CPT/HCPCS: 99214

== ENCOUNTER → 2024-03-30 13:07 | Outpatient (BNVA) | payer MEDICARE, SELFPAY | PROVIDERS: PCP Nurse Practitioner Family; Visit Provider Internal Medicine Pulmonary Disease | DX: J44.9 Chronic obstructive pulmonary disease, unspecified (principal); R06.00 Dyspnea, unspecified | CPT/HCPCS: 99212 ==

== ENCOUNTER 2024-05-23 12:27 | Outpatient (AMB) | payer MEDICARE, SELFPAY ==
--- NOTE | 2024-05-23 12:53 | MHC.OFFVIS ---
Vital Signs 05/23/24 12:55 Height 5 ft Weight 194 lb 10.691 oz BMI 38.0 BP 135/56 L Blood Pressure Location Rt brachial Position Sitting Pulse 62 Pulse Source Pulse Oximeter Pulse Oximetry (%) 95 Oxygen Delivery Method Room Air Intake Visit Reasons: F/U Adrenal adenoma Intake Note: Patient present today for Adrenal Adenoma follow up. Supervisory Investigative Specialist Required: No Accompanied by: Daughter In Law Allergies baclofen Allergy (Severe, Verified 05/23/24 12:56) Vomiting mirtazapine [From Remeron] Allergy (Unknown, Verified 05/23/24 12:56) Unable to sleep azithromycin Adverse Reaction (Unknown, Verified 05/23/24 12:56) IRREGULAR HEART BEAT zpak Allergy (Unknown, Uncoded 05/23/24 12:56) Unknown Medication List - Last Reconciled 05/23/24 by Noe Packer MD albuterol sulfate 90 mcg/actuation 2 puffs PO QID amlodipine 2.5 mg PO DAILY apixaban (Eliquis) 5 mg PO BID atorvastatin 80 mg PO DAILY cholecalciferol (vitamin D3) 50 mcg PO DAILY cyanocobalamin (vitamin B-12) (Vitamin B-12) 1,000 mcg PO DAILY dexamethasone 1 mg PO ONCE duloxetine 20 mg PO BID furosemide 40 mg PO DAILY gabapentin 300 mg PO TID isosorbide mononitrate ER 30 mg PO DAILY lorazepam 0.5 mg PO BID PRN melatonin 10 mg PO BEDTIME metoprolol succinate ER 50 mg PO DAILY tiotropium-olodaterol 2.5-2.5 mcg/actuation (Stiolto Respimat) 2 puffs PO DAILY HPI Comments Details: 83 YO Female with a PMHx COPD who is seen in F/U for an adrenal nodule. 2) Adrenal Nodule: She had a CT of the chest which captured a 1.6 cm R adrenal nodule. No HU were given. She was previously unaware of this. CT Adrenal protocol completed 12/03/2020 revealed a 1.7 cm R adrenal nodule measuring 6 HU precontrast. Absolute washout was 78%. Unfortunately no relative washout was given. This appeared unchanged from 2018. She was also noted to have a mass within the liver and was referred to GI. She is following with them for this. Recent repeat CT scan of the abdomen shows the adrenal lesion to be very low-density She does have a dorsocervical fat pad that she states has been present for a few years. She has no issues with poorly controlled HTN. Does not mention any spells . 24 hour urine collection revealed catecholamines and metanephrines completely WNL. 24 hour urinary cortisol was also WNL. She had a normal 1 mg overnight DSST which ruled out cristopher's. CT Without Contrast: 02/25/2022 FINDINGS: LUNG BASES: Plate-like atelectatic changes are seen in the right lung base. There is a small hiatal hernia. LIVER, GALLBLADDER, BILIARY TREE: The liver is normal size, contour and density.? PANCREAS: The pancreas is normal size and homogeneous in density without enlargement or lesion.? SPLEEN: The spleen is unremarkable.? ADRENAL GLANDS AND KIDNEYS: There is a 1.5 cm hypodense right adrenal lesion measuring -6 Hounsfield units suggestive of benign adenoma. No workup needed left adrenal gland is unremarkable.? BOWEL LOOPS: Scattered stool and gas is seen throughout the colon without any significant distention. The small bowel loops are normal caliber. LYMPH NODES: No lymph nodes visualized on this limited CT. VASCULAR: Proximal abdominal aorta is normal caliber except for mild atherosclerosis. BONES: Unremarkable.? CT/CT abdomen wo IV con IMPRESSION: 1.? 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 No further workup needed. 2.? Mild constipation. 3. Small hiatal hernia. Labs: Laboratory Tests 11/01/21 11/01/21 11/01/21 08:02 08:02 08:02 Renin Aldosterone 25-OH Vitamin D Total 34.9 TSH Free T4 DHEA Sulfate Random Cortisol 1.5 ACTH Plas Tot Catecholamine Dopamine Epinephrine Norepinephrine Plasma Free Metaneph Plasma Free Normeta Plas Total Metaneph Ur 24 Hour Volume Ur Creatinine 24 Hour Ur Free Cortisol 24 Hr U Norepinephrine 24 Hr U Free Metanephrine U Normetanephrine 24h U Tot Metanephrine 24h Ur Dopamine 24 Hr U Tot Catecholamine 24h Dexamethasone 184 11/05/21 11/05/21 11/05/21 07:47 07:47 07:47 Renin Aldosterone 11 25-OH Vitamin D Total TSH 1.58 Free T4 0.88 DHEA Sulfate 62 Random Cortisol ACTH 17 Plas Tot Catecholamine Dopamine Epinephrine Norepinephrine Plasma Free Metaneph Plasma Free Normeta Plas Total Metaneph Ur 24 Hour Volume Ur Creatinine 24 Hour Ur Free Cortisol 24 Hr U Norepinephrine 24 Hr U Free Metanephrine U Normetanephrine 24h U Tot Metanephrine 24h Ur Dopamine 24 Hr U Tot Catecholamine 24h Dexamethasone 11/05/21 11/05/21 11/05/21 07:47 07:47 07:47 Renin 2.55 Aldosterone 25-OH Vitamin D Total TSH Free T4 DHEA Sulfate Random Cortisol 10.6 ACTH Plas Tot Catecholamine Dopamine Epinephrine Norepinephrine Plasma Free Metaneph <25 Plasma Free Normeta 81 Plas Total Metaneph 81 Ur 24 Hour Volume Ur Creatinine 24 Hour Ur Free Cortisol 24 Hr U Norepinephrine 24 Hr U Free Metanephrine U Normetanephrine 24h U Tot Metanephrine 24h Ur Dopamine 24 Hr U Tot Catecholamine 24h Dexamethasone 11/05/21 11/07/21 11/07/21 07:47 08:00 08:00 Renin Aldosterone 25-OH Vitamin D Total TSH Free T4 DHEA Sulfate Random Cortisol ACTH Plas Tot Catecholamine 409 Dopamine <20 Epinephrine <40 Norepinephrine 409 Plasma Free Metaneph Plasma Free Normeta Plas Total Metaneph Ur 24 Hour Volume 700 Ur Creatinine 24 Hour 0.78 Ur Free Cortisol 24 Hr 9.1 U Norepinephrine 24 Hr U Free Metanephrine 37 L U Normetanephrine 24h 232 U Tot Metanephrine 24h 269 Ur Dopamine 24 Hr U Tot Catecholamine 24h Dexamethasone 11/07/21 08:00 Renin Aldosterone 25-OH Vitamin D Total TSH Free T4 DHEA Sulfate Random Cortisol ACTH Plas Tot Catecholamine Dopamine Epinephrine Norepinephrine Plasma Free Metaneph Plasma Free Normeta Plas Total Metaneph Ur 24 Hour Volume Ur Creatinine 24 Hour Ur Free Cortisol 24 Hr U Norepinephrine 24 Hr 14 L U Free Metanephrine U Normetanephrine 24h U Tot Metanephrine 24h Ur Dopamine 24 Hr 84 U Tot Catecholamine 24h 14 L Dexamethasone workup including 24 hour urine for metanephrines and normetanephrines were normal. A plasma normetanephrine level was slightly elevated The patient is an 83-year-old female presenting with an adrenal mass. Previous investigative workups conducted returned normal results. She reported past episodes of sweating, possibly due to menopause, although these have ceased. Duloxetine was previously used but discontinued, potentially affecting hormone levels. Normal 24 hr urine results were noted. Thyroid nodules have been stable on recent imaging, but she reports new-onset dysphagia, suggesting a possible esophageal cause. [facility] Medical History Vitamin D deficiency Adrenal mass, right Liver mass Multinodular thyroid Surgical History Hx of biopsy History of esophagogastroduodenoscopy (EGD) Hx of colonoscopy Hx of total knee replacement History of back surgery Hx of hysterectomy Family History Father COPD (chronic obstructive pulmonary disease) Asthma Mother Kidney disease Kidney replaced by transplant Cancer Heart disease Sister Kidney replaced by transplant Social History Alcohol intake: never Patient Tobacco Use Status: Never used Tobacco Physical Exam Vital Signs: Last Vital Signs Pulse 62 05/23/24 12:55 BP 135/56 L 05/23/24 12:55 Pulse Ox 95 05/23/24 12:55 Oxygen Delivery Method Room Air 05/23/24 12:55 BMI result Body Mass Index 38.0 Const Other: Thyroid gland is normal size weighs about 15 g. There are no nodules palpated. There were no cushingoid features Assessment & Plan Assessment & Plan (1) Adrenal mass, right: Code(s): E27.8 - Other specified disorders of adrenal gland Category: Medical Plan: Imaging characteristics-benign mass. Previous workup for hypersecretion was normal. She had a slightly elevated plasma normetanephrine level which was s probably due to duloxetine Will repeat 1 mg dexamethasone suppression test with cortisol and dexamethasone level. We will continue to follow on a yearly basis. No need for any further imaging. The patient is an 83-year-old female presenting with an adrenal mass. Previous investigative workups conducted returned normal results. She reported past episodes of sweating, possibly due to menopause, although these have ceased. Duloxetine was previously used but discontinued, potentially affecting hormone levels. Normal 24 hrurine results were noted. Thyroid nodules have been stable on recent imaging, but she reports new-onset dysphagia, suggesting a possible esophageal cause. I explained that, based on previous evaluations, the adrenal mass does not appear to be functionally active. Duloxetine use was examined, and its contribution to hormonal fluctuations was clarified, being unrelated to current improvement in symptoms. We reviewed the management plan focusing on symptom management and evaluation frequency, emphasizing annual reviews. I recommended further evaluation of swallowing issues possibly linked to esophageal dysfunction. The importance of future thyroid monitoring and regular assessment was elucidated to prevent overlooking potential changes. Continue with the current monitoring plan for the adrenal mass. - Follow up with primary care physician regarding swallowing difficulties. - Return for annual hormonal review as discussed. - Monitor for any new or worsening symptoms and report them promptly. Orders: Orders Dexamethasone Today E27.8 - Other specified disorders of adrenal gland Cortisol Random Today E27.8 - Other specified disorders of adrenal gland Medications: Refilled dexamethasone 1 mg PO ONCE 1 tab 0RF Coding Level of Care Code Est Pt Level 3 (35588) Diagnoses Adrenal mass, right E27.8
[2024-05-23 12:55] VITALS: BP 135/56; PULSE 62; O2SAT 95; BMI 38.0
--- OUTSIDE RECORDS SUMMARY | 2024-05-23 14:46 | XMS_ITS | Encounter Summary ---
Author Organization [facility] Address [address] [place] [address] Phone Care Team Providers Care Metal Door Assembler Name Role Phone Stephanie Stuart NP Primary Care Provider [phone] Encounter Details Date Type Department Care Team (Late st Contact Info) Description 05/23/2024 Documentation Only [facility], [address] [place] [address] Estefani Jackson [address] [place] [phone] Social History Tobacco Use Types Packs/Day Years Used Date Smoking Tobacco: Never Assessed Comments Unknown Sex and Gender Information Value Date Recorded Sex Assigned at Not on file Legal Sex Female 10:51 AM EST Gender Identity Not on file Sexual Orientation Not on file documented as of this encounter Plan of Treatment Upcoming Encounters Date Type Department Care Team (Late st Contact Info) Description 05/24/2024 4:15 PM EDT Office Visit [facility] [address] [place] [address] Hermann Umaña MD [address] [place] [address] [place] [address] documented as of this encounter Visit Diagnoses Not on filedocumented in this encounter Care Teams Metal Door Assembler Relationship Specialty Start Date End Date Stephanie Stuart NP [address] [place] [phone] PCP - General Nurse Practitioner 08/01/22 documented as of this encounter
--- OUTSIDE RECORDS SUMMARY | 2024-05-23 14:46 | XMS_ITS | Clinical Summary ---
Author Organization [facility] Address [address] [place] [address] Care Team Providers Care Destination Imagination Coordinator Name Role Phone Unavailable Primary Care Provider [...]
--- OUTSIDE RECORDS SUMMARY | 2024-05-23 14:46 | XMS_ITS | Encounter Summary ---
Author Organization [facility] Address [address] [place] [address] Phone Care Team Providers Care Promotions Team Leader Name Role Phone Stephanie Stuart NP Primary Care Provider Encounter Details Date Type Department Care Team (Late st Contact Info) Description 05/23/2024 Documentation Only [facility], [address] [place] [address] Estefani Jackson [address] [place] [phone] Social History Tobacco Use Types Packs/Day Years [...] Visit [facility] [address] [place] [address] Hermann Umaña MD [address] [place] [address] [place] [address] documented as of this encounter Visit Diagnoses Not on filedocumented in this encounter Care Teams Promotions Team Leader Relationship Specialty Start Date End Date Stephanie Stuart NP [address] [place] [phone] PCP - General Nurse Practitioner 08/01/22 documented as of this encounter
--- OUTSIDE RECORDS SUMMARY | 2024-05-23 14:46 | XMS_ITS | Encounter Summary ---
Author Organization [facility] Address [address] [place] [address] Phone Care Team Providers Care Cd Reactor Operator Head Name Role Phone Stephanie Stuart NP Primary Care Provider [phone] Encounter Details Date Type Department Care Team (Late st Contact Info) Description 05/23/2024 Documentation Only [facility] [place], [address] [place] [address] Estefani Jackson [address] [place] [phone] Social History Tobacco Use Types Packs/Day Years [...] Visit [facility] [address] 1 [place] [address] Hermann Umaña MD [address] [place] [address] [place] [id number] documented as of this encounter Visit Diagnoses Not on filedocumented in this encounter Care Teams Cd Reactor Operator Head Relationship Specialty Start Date End Date Stephanie Stuart NP [address] [place] [phone] PCP - General Nurse Practitioner 08/01/22 documented as of this encounter
--- OUTSIDE RECORDS SUMMARY | 2024-05-23 14:46 | XMS_ITS | Encounter Summary ---
Author Organization [facility] Address [address] [place] [address] Phone Care Team Providers Care Scrap Drop Operator Name Role Phone Stephanie Stuart NP Primary Care Provider [phone] Encounter Details Date Type Department Care Team (Late Contact Info) Description 04/14/2024 Documentation Only [facility] [place], [address] [place] [address] Dottie Oneil [place] [address] [place] [phone] Social History Tobacco Use Types Packs/Day Years Used Date Smoking Tobacco: Never Assessed Comments Unknown Sex and Gender Information Value Date Recorded Sex Assigned at Not on file Legal Sex Female 10:51 AM EST Gender Identity Not on file Sexual Orientation Not on file documented as of this encounter Plan of Treatment Upcoming Encounters Date Type Department Care Team (Late Contact Info) Description 05/24/2024 4:15 PM EDT Office [facility] [address] 1 [place] [address] Hermann Umaña MD [address] [facility] [place] [address] documented as of this encounter Visit Diagnoses Not on filedocumented in this encounter Care Teams Scrap Drop Operator Relationship Specialty Start Date End Date Stephanie Stuart NP [address] [place] [phone] PCP - General Nurse Practitioner 08/01/22 documented as of this encounter
--- OUTSIDE RECORDS SUMMARY | 2024-05-23 14:46 | XMS_ITS | Encounter Summary ---
Author Organization [facility] Address [address] [place] [address] Phone Care Team Providers Care Ditch Worker Name Role Phone Stephanie Stuart NP Primary Care Provider Encounter Details Date Type Department Care Team (Late st Contact Info) Description 05/23/2024 Documentation Only [facility] [place], [address] [place] [address] Estefani Jackson [address] [place] [phone] Social History Tobacco Use Types Packs/Day Years [...] Visit [facility] [address] 1 [place] [address] Hermann Umaña MD [address] [place] [address] [place] [address] documented as of this encounter Visit Diagnoses Not on filedocumented in this encounter Care Teams Ditch Worker Relationship Specialty Start Date End Date Stephanie Stuart NP [address] [place] [phone] PCP - General Nurse Practitioner 08/01/22 documented as of this encounter
--- OUTSIDE RECORDS SUMMARY | 2024-05-23 14:46 | XMS_ITS | Clinical Summary ---
Author Organization [facility] [place], Address [address] [facility] [address] [place] [address] Phone Care Team Providers Care Plant Security Guard Name Role Phone Stephanie Stuart NP Primary Care Provider [phone] Medications acetaminophen (TYLENOL) 500 MG tablet Take [...] every other day 45 capsule 3 09/09/2023 5 Active Active Problems Problem Noted Date Diagnosed Date Stage 3a chronic kidney disease 09/09/2022 Renal osteodystrophy 09/09/2022 Stage 3b chronic kidney disease 09/09/2022 Parapelvic renal cyst 09/09/2022 Anemia 09/08/2022 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 Stage 3 chronic kidney disease 09/08/2022 Vitamin D deficiency 09/08/2022 Impaired fasting glucose 09/08/2022 Encounters Date Type Department Care Team Description 05/23/2024 Documentation Only [facility] [address] [place] [address] Manuel, Estefani 05/23/2024 Documentation Only [facility] [address] [place] [address] Manuel, Estefani 05/23/2024 Documentation Only [facility] [address] [place] [address] Manuel, Estefani 05/23/2024 Documentation Only [facility] [address] [place] [address] Manuel, Estefani 05/23/2024 Documentation Only [facility] [address] [place] [address] Manuel, Estefani 04/14/2024 Documentation Only [facility] [address] [place] [address] Dottie Oneil MA from Last 3 Months Immunizations Name Administration Dates Next Due Influenza Split High Dose Preservative Free IM 0 10/24/2019 Social History Tobacco Use Types Packs/Day Years Used Date Smoking Tobacco: Never Assessed Comments Unknown Sex and Gender Information Value Date Recorded Sex Assigned at Not on file Legal Sex Female 10:51 AM EST Gender Identity Not on file Sexual Orientation Not on file Plan of Treatment Upcoming Encounters Date Type Department Care Team (Late st Contact Info) Description 05/24/2024 4:15 PM EDT Office Visit [facility] [address] [place] [address] [place] [address] Hermann Umaña MD [address] [facility] [place] [address] Health Maintenance Due Date Last Done Comments Pneumococcal Vaccine: 65+ Years (2 of 2 - PPSV23 or PCV20) 03/12/2021 01/15/2021 Influenza Vaccine (Season Ended) 2024 10/24/2019, 10/24/2019 Hepatitis B Vaccine Aged Out No longe r eligible based on patient's age to complete this topic Insurance MEDICARE [facility] Care Teams Plant Security Guard Relationship Specialty Start Date End Date Stephanie Stuart NP [address] [place] [address] [address] [place] [address] PCP - General Nurse Practitioner 08/01/22
--- OUTSIDE RECORDS SUMMARY | 2024-05-23 14:46 | XMS_ITS | Encounter Summary ---
Author Organization [facility], Address [address] [place] [address] Phone Care Team Providers Care Mold Injector Name Role Phone Stephanie Stuart NP Primary Care Provider [phone] Reason for Visit * Reason Comments Med Refill Encounter Details Date Type Department Care Team (Late st Contact Info) Description 12/02/2022 Refill [facility] [address] [facility] 1 [place] [address] Hermann Umaña MD [address] [place] [address] [place] [address] Social History Tobacco Use Types Packs/Day Years [...] Office Visit [facility] [address] [place] [address] Hermann Umaña MD [address] [place] [address] [place] [address] documented as of this encounter Visit Diagnoses Not on filedocumented in this encounter Care Teams Mold Injector Relationship Specialty Start Date End Date Stephanie Stuart NP [address] [phone] PCP - General Nurse Practitioner 08/01/22 documented as of this encounter
--- OUTSIDE RECORDS SUMMARY | 2024-05-23 14:46 | XMS_ITS | Encounter Summary ---
Author Organization [facility] Address [address] [place] [address] Phone Care Team Providers Care Set Up Worker Name Role Phone Stephanie Stuart NP Primary Care Provider [phone] Encounter Details Date Type Department Care Team (Late st Contact Info) Description 05/23/2024 Documentation Only [facility] [place], [address] [place] [address] Estefani Jackson [address] [place] [phone] Social History Tobacco Use Types Packs/Day Years [...] Visit [facility] [address] 1 [place] [address] Hermann Umaña MD [address] [place] [address] [place] [address] documented as of this encounter Visit Diagnoses Not on filedocumented in this encounter Care Teams Set Up Worker Relationship Specialty Start Date End Date Stephanie Stuart NP [address] [place] [phone] PCP - General Nurse Practitioner 08/01/22 documented as of this encounter
--- OUTSIDE RECORDS SUMMARY | 2024-05-23 14:47 | XMS_ITS ---
Author Organization [employer] [facility]. Address [address] [place] [address] Care Team Providers Care Manager Trust Name Role Phone Pranay Holly Primary Care Provider Allergies Allergen (clinical drug ingredient) Drug/Non Drug Allergy documented on EMR Reaction Allergy Type Onset Date Status guaifenesin Robafen vomiting Drug Allergy Activ e azithromycin Azithromycin A-fib Drug Allergy A ctive baclofen Baclofen stomach upset Drug Allergy Act andreina Pollen Pollen vomiting Allergy Active REASON FOR VISIT walk-in psychiatric np- pain in lower left side; Pt. states she is dx with diverticulitis and states this is another flare up px began lastnight, was last treated for this about a month ago with amoxicillin she stated, pt. is from out of town as well, Pharmacy - [facility] Medications Medication SIG (Take, Route, Frequency, Duration) Notes Start Date End Date Status Amoxicillin-Pot Clavulanate 875-125 MG TAKE 1 TABLET BY MOUTH TWICE A DAY FOR 7 DAYS Oral for 7 Days Not-Taking DULoxetine HCl 60 MG Oral for 90 Days Active Eliquis 5 MG Oral for 30 Days Active Furosemide 40 MG Oral for 90 Days Active Atorvastatin Calcium 80 MG TAKE 1 TABLET BY MOUTH EVERYDAY AT BEDTIME Oral for 90 Days Active Calcitriol 1 MCG/ML 1 mL Orally Once a day Active Metoprolol Succinate ER 50 MG 1 tablet Orally Once a day Active amLODIPine Besylate 5 MG 1 tablet Orally Once a day Active Isosorbide Dinitrate 5 MG 1 tablet Orall y Twice a day Active Stiolto Respimat 2.5-2.5 MCG/ACT 2 puffs Inhalation Once a day Active buPROPion HCl 100 MG 1 tablet Orally Twi ce a day 300 mg Active Ciprofloxacin HCl 500 MG 1 tablet Orally every 12 hrs for 10 days 10/03/2023 Active metroNIDAZOLE 500 MG 1 tablet Orally Twi ce a day for 10 days 10/03/2023 Active Social History Tobacco Use: Social History Observation Description Date Details (start date - stop date) Never Smoker NA - NA Sexual History Question Answer Notes Had sex [...] Problem Status W/U Status Risk Notes Problem 261900804 Diverticulitis (K57.92) Active confirmed Vital Signs Height 60 in 10/03/2023 Weight 196.8 lbs 10/03/2023 BMI 38.43 kg/m2 10/03/2023 Blood pressure systolic 116 mm Hg 10/03/19 24 Blood pressure diastolic 69 mm Hg 024 Heart Rate 64 /min 10/03/2023 Respiratory Rate 17 /min 10/03/2023 Temperature 98.2 degrees Fahrenheit 10/03/19 24 Oximetry 97 % 10/03/2023 Encounters Encounter Location Date Provider Diagnosis [facility] [address] [place] [address] 10/03/2023 Holly Pires Dietary surveillance and counseling Z71.3 ; Diverticulitis K57.92 ; Exercise counseling Z71.82 ; Encounter for screening Z13.9 and Depression screen Z13.31 Assessments Encounter Date Diagnosis (ICD Code) Assessment Notes Treatment Notes Treatment Clinical Notes Section Notes 10/03/2023 Dietary surveillance and counseling (ICD-10 [...] Z13.9) Patient does not use or abuse alcohol/substanc es. Encouraged patient to stay away from alcohol/substanc e use and abuse. Patient verbalized understanding. 10/03/2023 Depression screen (ICD-10 - Z13.31) Nurse administered PHQ-2 depression screening negative results noted 10/03/2023 Other [facility] UNAVAILABLE TO PRINT MED INFO Plan Of Treatment Medication Medication Name Sig Start Date Stop Date Notes Ciprofloxacin HCl 500 MG 1 tablet Orally every 12 hrs for 10 days 10/03/2023 metroNIDAZOLE 500 MG 1 tablet Orally Twi ce a day for 10 days 10/03/2023 Treatment Notes Assessment Notes Dietary surveillance and counseling Coun seled the patient on the importance of eating a healthy diet Diverticulitis Take your antibiotic s as prescribed and until all are gone. Symptoms should improve within 2-3 days from starting antibiotics. Continue medications for 10-14 days. Avoid nuts, corn, and popcorn. Seek medical treatment for increase in pain, onset of fever, chills, bleeding. Exercise counseling Counseled the patien t on importance of physical activity at least 3 - 5 times a week. Also encouraged the patient to increase daily activity. Encounter for screening Patient does not use or abuse alcohol/substances. Encouraged patient to stay away from alcohol/substance use and abuse. Patient verbalized understanding. Depression screen Nurse administered P HQ-2 depression screening negative results noted Other [facility] UNAVAI LABLE TO PRINT MED INFO Next Appt Details Follow Up: 1 Week, Reason: Progress Notes * Margie GARCIA ADOB:1940 (83 yo F)Acc No.[id number]:10/03/2023 Patient:?RADHA, Margie A Appointment Provider:?AIME Martell :1940???Age:83 Y???Sex:Female D ate:10/03/2023 Address:[facility] Subjective: * Chief Complaints: * ???walk-in psychiatric np- pain in lower left side; Pt. states she is dx with diverticulitis and states this is another flare up px began lastnight, was last treated for this about a month ago with amoxicillin she stated, pt. is from [place] [facility] as wellPh[facility] - [facility] * HPI: ???Depression Screening:?PHQ-2 (2015 Edition)?Little interest or pleasure in doing things??Not at all ?Feeling down, depressed, or hopeless??Not at all ?Total Score?0 ???CC:?Margie is an 83-year-old female who presents today with left sided abdominal pain that started last night. SHe notes a history of diverticulitis, last treated a month ago for this. SHe notes that she has been having to go to the bathroom frequently for bowel movements, though she denies nausea, vomiting, or diarrhea. She denies fever. * ROS:?General/Constitutional:?Patient denies?change in appetite, chills, fatigue, headache, fever, night sweats, sleep disturbance, weight loss, weight gain, weakness.?Allergy/Immunology:?Patient denies?cough, congestion, sneezing, watery eyes, wheezing, itching.?HEENT:?Patient denies?difficulty swallowing, ear pain, ringing in the ears, sinus pain, sore throat, swollen glands.?Respiratory:?Patient denies?chest pain, cough, wheezing, sputum production.?Cardiovascular:?Patient denies?chest pain, irregular heartbeat, palpitations.?Gastrointestinal:?Patient denies?nausea, vomiting, diarrhea.?Patient complaining of?abdominal discomfort.?Musculoskeletal:?Patient denies?muscle aches, joint stiffness, painful joints.?Neurologic:?Patient denies?fainting, dizziness, difficulty speaking, balance difficulty, gait abnormality.? * Medical History:? * Wagon Winder History:?Periods :?hysterectomy.?Sexual activity?not currently sexually active.?Last pap smear date ?Response:?age, hysterectomy ???Last mammogram date ?Response:?order through PCP, [place] * OB History:?Total pregnancies?3.?Total living children?3.? # 1:?normal spontaneous vaginal delivery ().? # 2:?normal spontaneous vaginal delivery ().? # 3?normal spontaneous vaginal delivery ().? * Surgical History:?back surge ry knee R replacement Hysterectomy * Hospitalization/Major Diagno stic Procedure:?view surgical hx above x3 chilbirths * Family History:?Mother: dece ased, diagnosed with Cancer.?Father: .?1 brother(s) , 1 sister(s) - healthy. 2 son(s) , 1 daughter(s) - healthy. .? Sister-? - Cancer. * Social History:?Tobacco Use:?Tobacco Control (Standard)?Tobacco use:?Nonsmoker ???Drugs/Alcohol:?SBIRT (2018 Edition)?Patient refused/declined SBIRT screening at this time??No ?1. How often do you have a drink containing alcohol??Never ?3. How often do you have five or more drinks on one occasion??Never ?SCORE?0 ?Interpretation?Negative ?How many times in the past year have you used an illegal drug or used a prescription medication for non-medical reasons??0 ?Total Count?0 ?Interpretation?Negative ???Sexual History:?Sexual History?Had sex in the past 12 months (vaginal, oral, or anal)??No ?Have you ever had a Sexually transmitted disease??No ?Last menstrual period?hysterectomy ???ER Visits/Hospital Re-Admissions:?ER Visits?Have you had a ER Visit in last 12 months?No ?Hospital Admissions and or Readmissions?Have you had a hospital admission or re admission in last 12 months??No ???Behaviors affecting health:?Nutrition: No. ?Oral Health: No. ?Dental Care: No. ?Familial Behaviors: No. ?Risky Sexual Behavior: No. ?Secondhand Smoke Exposure: No. ???Household:?Household: . ???Miscellaneous:?Sexual Orientation?Sexual Orientation?Straight (not lesbian or murphy) ?Housing: living with relatives. ?Living with: family. ?Support system at home: relies on family. * Medications:?TakingbuPROPion HCl 100 MG Tablet 1 tablet Orally Twice a day , Notes to Pharmacist: 300 mgCalcitriol 1 MCG/ML Solution 1 mL Orally Once a day Stiolto Respimat 2.5-2.5 MCG/ACT Aerosol Solution 2 puffs Inhalation Once a day Isosorbide Dinitrate 5 MG Tablet 1 tablet Orally Twice a day amLODIPine Besylate 5 MG Tablet 1 tablet Orally Once a day Metoprolol Succinate ER 50 MG Tablet Extended Release 24 Hour 1 tablet Orally Once a day Eliquis 5 MG Tablet Oral Atorvastatin Calcium 80 MG Tablet TAKE 1 TABLET BY MOUTH EVERYDAY AT BEDTIME Oral Furosemide 40 MG Tablet Oral DULoxetine HCl 60 MG Capsule Delayed Release Particles Oral Taking buPROPion HCl 100 MG Tablet 1 tablet Orally Twice a day , Notes to Pharmacist: 300 mgTaking Calcitriol 1 MCG/ML Solution 1 mL Orally Once a day Taking Stiolto Respimat 2.5-2.5 MCG/ACT Aerosol Solution 2 puffs Inhalation Once a day Taking Isosorbide Dinitrate 5 MG Tablet 1 tablet Orally Twice a day Taking amLODIPine Besylate 5 MG Tablet 1 tablet Orally Once a day Taking Metoprolol Succinate ER 50 MG Tablet Extended Release 24 Hour 1 tablet Orally Once a day Taking Eliquis 5 MG Tablet Oral Taking Atorvastatin Calcium 80 MG Tablet TAKE 1 TABLET BY MOUTH EVERYDAY AT BEDTIME Oral Taking Furosemide 40 MG Tablet Oral Taking DULoxetine HCl 60 MG Capsule Delayed Release Particles Oral Ala-SnrxfaXtgvyzhlxvs-Kwo Clavulanate 875-125 MG Tablet TAKE 1 TABLET BY MOUTH TWICE A DAY FOR 7 DAYS Oral Medication List reviewed and reconciled with the patientNot-Taking Amoxicillin-Pot Clavulanate 875-125 MG Tablet TAKE 1 TABLET BY MOUTH TWICE A DAY FOR 7 DAYS Oral Medication List reviewed and reconciled with the patient * Allergies:?Azithromycin: A-f ibPollen: vomiting - AllergyBaclofen: stomach upset - AllergyRobafen: vomiting - Allergyno[Allergies Verified] Objective: * Vitals:?Ht:60, Wt:196.8, BMI :38.43, BP:116/69, HR:64, RR:17, Temp:98.2, Oxygen sat %:97, Wt-k.27. * Examination: ???General Examination: ?GENERAL APPEARANCE:?alert , appears comfortable , in no apparent distress.?HEAD:?normocephalic, atraumatic.?EYES:?both eyes?conjunctiva clear and without discharge.?NOSE:?nares patent?.?ORAL CAVITY:?mucosa moist , no lesions.?NECK/THYROID:?no cervical adenopathy , no thyromegaly.?HEART:?regular rate and rhythm.?LUNGS:?comfortable work of breathing , good air movement , no wheeze, rhonchi, or rales.?ABDOMEN:?soft, nondistended, no guarding or rigidity, no rebound tenderness,?mild LLQ abd tenderness.?BACK:?no costovertebral angle tenderness.?MUSCULOSKELETAL:?full range of motion , normal.?EXTREMITIES:?normal , full range of motion.?NEUROLOGIC:?alert and oriented.? Assessment: * Assessment: 1.?Diverticulitis - K57.92 ( Primary)?2.?Dietary surveillance and counseling - Z71.3?3.?Exercise counseling - Z71.82?4.?Encounter for screening - Z13.9?5.?Depression screen - Z13.31? Plan: * Treatment: 2.?Dietary surveillance and counseling? Notes: Counseled the patient on the importance of eating a healthy diet?? 3.?Exercise counseling? Notes: Counseled the patient on importance of physical activity at least 3 - 5 times a week. Also encouraged the patient to increase daily activity.?? 4.?Encounter for screening? Notes: Patient does not use or abuse alcohol/substances. Encouraged patient to stay away from alcohol/substance use and abuse. Patient verbalized understanding. ?? 5.?Depression screen? Notes:Nurse administered PHQ-2 depression screening negative results noted?? 6.?Others? Notes: [facility] UNAVAILABLE TO PRINT MED INFO?? * ??Immunizations:? ??Immunization record has be en reviewed and updated. * Procedure Codes:?1159F MED L IST DOCD IN [id number] RVW MEDS BY RX/DR IN [id number] BODY MASS INDEX [id number] [facility] VISIT NEW PATIENT * Preventive Medicine:? ??Prescription:?Understands meds?.?No problems with meds?.? ??Counseling:?Care goal follow-up plan:?BMI management provided?Yes ?Communication to patient:?Counseling for nutrition provided?Yes ?Counseling for physical activity provided?Yes ?Diet?Eat a well balanced diet with servings from each food group, choose healthy snacks, increase water intake..?Exercise?30 minutes at least 5 days per week.?Time (total in all categories):?15 minutes.? ??Handouts Given:?Assesment for SM abilities?.?Assessed-outside Referral?.? ??Screening/Special Tests:?Colonoscopy?order through PCP.?Mammogram?order through PCP.?Pap Smear?hysterectomy.? * Follow Up:?1 Week Care Plan: * Problems:? * Images: * Sign off status: Completed true * Appointment Provider:?AIME Martell Date:?10/03/2023 Generated for Printing/Faxing/eTransmitting on:?05/23/2024 02:46 PM EDT History and Physical Notes * HPI (History of Present Illness) Category Sub-Category Detail Notes Category Not es YESICA Hanson is an 83-year-old female who presents today with left sided abdominal pain that started last night. SHe notes a history of diverticulitis, last treated a month ago for this. SHe notes that she has been having to go to the bathroom frequently for bowel movements, though she denies nausea, vomiting, or diarrhea. She denies fever. Depression Screening PHQ-2 (2015 Edition) Little interest or pleasure in doing things?: Not at all Feeling down, depressed, or hopeless?: N ot at all Total Score: 0 Examination Category Sub-Category Detail Notes Category Not es General Examination GENERAL APPEARANCE: alert , appears comfortable , in no apparent distress HEAD: normocephalic, atrau matic EYES: both eyes conjunctiv a clear and without discharge NOSE: nares patent NECK/THYROID: no cervical adenopat hy , no thyromegaly HEART: regular rate and rhy thm LUNGS: comfortable work of breathing , good air movement , no wheeze, rhonchi, or rales ABDOMEN: soft, nondistended, no guarding or rigidity, no rebound tenderness, mild LLQ abd tenderness NEUROLOGIC: alert and oriented EXTREMITIES: normal , full range of motion BACK: no costovertebral an gle tenderness MUSCULOSKELETAL: full range of motion , normal ORAL CAVITY: mucosa moist , no le sions
--- OUTSIDE RECORDS SUMMARY | 2024-05-23 14:47 | XMS_ITS ---
Author Organization [facility]. Address [address] [place] [address] Care Team Providers Care Bobbin Coil Winder Name Role Phone Holly Pires Primary Care Provider REASON FOR VISIT appt-1 week f/u Encounters Encounter Location Date Provider Diagnosis [facility] [address] [place] [address] 10/10/2023 Holly Pires Plan Of Treatment No Information Progress Notes * Margie GARCIA ADOB:1940 (83 yo F)Acc No.[id number]:10/10/2023 Patient:?RADHA, Margie Halima Appointment Provider:?AIME Martell :1940???Age:83 Y???Sex:Female D ate:10/10/2023 Address:[address] [place], [place] [id number] Subjective: * Chief Complaints: * ???1. Appt-1 week f/u. * Medical History:? Objective: * Vitals:? Assessment: Plan: * Treatment: Care Plan: * Problems:? * * Electronic signature of AIME Moreira on 05/23/2024 at 11:42 AM EDT Sign off status: Pending * Appointment Provider:?AIME Martell Date:?10/10/2023 Generated for Printing/Faxing/eTransmitting on:?05/23/2024 11:42 AM EDT
--- OUTSIDE RECORDS SUMMARY | 2024-05-23 14:47 | XMS_ITS | Patient Health Record ---
Author Organization [employer] [facility]. Address [address] [place] [address] Care Team Providers Care Sap Analyst Name Role Phone Holly Pires Primary Care Provider Allergies Allergen (clinical drug [...] Problem Status W/U Status Risk Notes Problem [id number] Diverticulitis (K57.92) Active confirmed Problem [id number] Allergic rhiniti s, unspecified seasonality, unspecified trigger (J30.9) Active confirmed Vital Signs Heart Rate 64 /min 10/03/2023 Temperature 98.2 degrees Fahrenheit 10/03/2023 Respiratory Rate 17 /min 10/03/2023 Oximetry 97 % 10/03/2023 Blood pressure diastolic 69 mm Hg 10/03/2023 Height 60 in 10/03/2023 Blood pressure systolic 116 mm Hg 10/03/2023 Weight 196.8 lbs 10/03/2023 BMI 38.43 kg/m2 10/03/2023 Encounters Encounter Location Date Provider Diagnosis [facility] [address] [place] [address] 10/03/2023 Holly Pires Dietary surveillance and counseling [...] End Date Medicare [employer] [address] [place] [address] [id number] Margie Jackson Self - patient is the insured [facility] [address] [place] [address] [phone] [id number] Margie Jackson Self - patient is the insured Medical (General) History Medical History History ICD Code diverticulitis seasonal allergies HLD HTN vitamin D deficient Surgical History Surgery Date(Month/Year) back surgery knee R replacement Hysterectomy Hospitalization History Reason Date(Month/Year) view surgical hx above x3 chilbirths
== END 2024-05-23 13:24 | disposition home or self-care (01) ==
LOC: HO.ENCR 12:27
PROVIDERS: PCP Nurse Practitioner Family; Visit Provider Internal Medicine Endocrinology, Diabetes & Metabolism
DX: E27.8 Other specified disorders of adrenal gland (principal)
CPT/HCPCS: 99213

== ENCOUNTER → 2024-05-23 12:27 | Outpatient (BNVA) | payer MEDICARE, SELFPAY | PROVIDERS: PCP Nurse Practitioner Family; Visit Provider Internal Medicine Endocrinology, Diabetes & Metabolism | DX: E27.8 Other specified disorders of adrenal gland (principal) | CPT/HCPCS: 99212 ==